=== PATIENT | female | born 1965 | race Caucasian/White ===

== ENCOUNTER 2019-06-10 10:05 | Emergency (ER) | payer OTHER, SELFPAY ==
[2019-06-10 10:06] VITALS: BP 167/93; PULSE 94; RESP 18; TEMP 36.6; O2SAT 98; BMI 35.1
--- NOTE | 2019-06-10 10:18 | EKG12_ITS ---
Test Reason : CP Blood Pressure : / mmHG Vent. Rate : 088 BPM Atrial Rate : 088 BPM P-R Int : 174 ms QRS Dur : 082 ms QT Int : 396 ms P-R-T Axes : 035 012 044 degrees QTc Int : 479 ms Normal sinus rhythm Normal ECG Confirmed by YORDAN LOPEZ, GENE ([id number]), metropolitan editor CATINA LENTZ ([id number]) on 06/14/2019 10:27:36 AM Referred By: IVELISSE Confirmed By:GENE FARR MD
--- NOTE | 2019-06-10 10:18 | RAD_ITS ---
STUDY: X-RAY - RIGHT HUMERUS REASON FOR EXAM: Female, 53 years old. Pain TECHNIQUE: 2 view(s) of the humerus. COMPARISON: None. FINDINGS: On one view, The transverse lucency possible step off within the medial epicondyle of the distal humerus. There is no demonstrated fracture or osseous destructive process. There is no demonstrated soft tissue abnormality. RAD/Humerus min 2 Views IMPRESSION: Possible artifact versus fracture medial epicondyle. Recommend palpation for point tenderness at the level of the medial condyle of the distal humerus. Recommend follow elbow x-ray of appropriate. Otherwise no evidence of an acute fracture. Electronically Signed: Shae Alvarez MD at 11:58 EDT Tel , Service support ,
--- NOTE | 2019-06-10 10:18 | RAD_ITS ---
STUDY: X-RAY CHEST REASON FOR EXAM: Female, 53 years old. Chest pain TECHNIQUE: PA and lateral views of the chest. COMPARISON: None. FINDINGS: The lungs are clear and expanded. There is no demonstrated pleural abnormality. Normal size heart. Normal mediastinum and mariel. Normal visualized pulmonary arteries. Normal visualized aortic arch and descending thoracic aorta. There are diffuse degenerative changes of the visualized thoracic spine. Normal visualized ribs, clavicles, and shoulders. There is no demonstrated abnormality of the visualized soft tissue structures of the upper abdomen. RAD/Chest PA and Lateral IMPRESSION: No demonstrated acute cardiopulmonary process. Electronically Signed: Shae Alvarez MD at 11:55 EDT Tel , Service support ,
--- NOTE | 2019-06-10 10:19 | ED.DCSUM_ITS ---
History of Present Illness Chief Complaint: Chest Pain Detail of Chief Complaint: Right chest and arm pain Informant: Patient Onset: Weeks Current Severity: Moderate Maximum Severity: Moderate Narrative: Patient states that she was diagnosed with shingles to the right upper chest and shoulder region approximately 8 weeks ago. Lesions have since resolved. Patient continues to have pain to the area and is continued to worsen. She is currently taking gabapentin but not getting improvement. She had previously been on Percocet but has not taken that in the past 2 weeks. Past Medical History - Allergies and Home Meds Allergies/Adverse Reactions: Allergies No Known Allergies Allergy (Verified 06/10/19 10:08) Primary Care Physician: Alexi Truong MD [Primary Care Provider] - Past Medical History: - - Reviewed Review of Systems General: Denies: Chills, Fever Eyes: Denies: Visual changes - bilaterally ENT: Denies: Bilateral ear pain Cardiovascular: Reports: Chest pain. Denies: Palpitations, Heart racing Respiratory: Denies: Dyspnea, Cough Gastrointestinal: Denies: Abdominal pain, Nausea, Vomiting Musculoskeletal: Reports: Arthralgias, Neck pain, Extremity Pain Neurological: Reports: Numbness - Mild numbness to the posterior right upper arm. Denies: Headache, Weakness Endocrine: Denies: Polyuria, Polydipsia Hematologic: Denies: Easy bruising Allergy: Denies: Uticaria Physical Exam Vital Signs/Narrative: Vital Signs Temp Pulse Resp BP Pulse Ox 06/10/19 10:06 97.9 F 94 18 167/93 H 98 Inital Vital Signs reviewed: Yes General: Well nourished, Well developed ENT: Moist mucous membranes Cardiovascular: Regular rate, Regular rhythm Respiratory: No distress, CTA bilaterally, Chest tenderness - Reproducible tenderness over the right upper chest wall. No crepitus. Abdomen: Soft, Nontender Extremities: Tenderness - Mild tenderness palpation throughout the right humerus. Skin: Normal color, No rash Neurological: Alert, Oriented x3 Psychological: Normal affect Diagnostic/Tx/Re-eval Impressions Chest X-Ray 06/10/19 10:18 IMPRESSION: No demonstrated acute cardiopulmonary process. Electronically Signed: Shae Alvarez MD at 11:55 EDT Tel , Service support , Humerus X-Ray 06/10/19 10:18 IMPRESSION: Possible artifact versus fracture medial epicondyle. Recommend palpation for point tenderness at the level of the medial condyle of the distal humerus. Recommend follow elbow x-ray of appropriate. Otherwise no evidence of an acute fracture. Electronically Signed: Shae Alvarez MD at 11:58 EDT Tel , Service support , 06/10/19 10:18 Chest PA and Lateral [RAD] Stat Humerus min 2 Views [RAD] Stat Laboratory Results 06/10/19 06/10/19 10:10 10:10 WBC 10.0 RBC 4.27 Hgb 13.1 Hct 39.4 MCV 92.3 MCH 30.7 MCHC 33.2 RDW Std Deviation 49.4 H RDW Coeff of Susan 14.6 Plt Count 296 MPV 10.2 Immature Gran % (Auto) 0.300 Neut % (Auto) 50.9 Lymph % (Auto) 38.2 Maverick % (Auto) 7.1 Eos % (Auto) 2.5 Baso % (Auto) 1.0 Absolute Neuts (auto) 5.1 Absolute Lymphs (auto) 3.82 Nucleated RBC % 0 Sodium 138 Potassium 3.8 Chloride 107 Carbon Dioxide 27.0 Anion Gap 4 L BUN 18 Creatinine 0.83 Estim Creat Clear Calc 62.71 Est GFR (MDRD) Af Amer 92 Est GFR (MDRD) Non-Af 76 BUN/Creatinine Ratio 21.6 H Glucose 105 Calcium 9.5 Troponin I < 0.015 - EKG Initial EKG Interpretation: Sinus Rhythm - Sinus 80 with no acute ischemia. - Medical Decision Making Patient was given morphine, Zofran, and IV fluids. On repeat evaluation she states her pain was improved and is now increasing again. I suspect she has postherpetic neuralgia. She is already on gabapentin. She will be given a short course of Percocet to help control her pain is week and I will see her doctor as scheduled this coming week. ED Disposition - Plan for ED Patient: Disposition: Home or Assisted Living Diagnosis: Postherpetic neuralgia Prescriptions: Oxycodone HCl/Acetaminophen [Percocet 5/325] 1 tablet PO Q6H PRN PRN 3 Days #12 tablet PRN Reason: Pain Referrals: Alexi Truong MD [Primary Care Provider] - Keep Major appointment
[2019-06-10 10:26] VITALS: BP 167/94; PULSE 77; RESP 14; O2SAT 94
[2019-06-10 10:26] LABS: Absolute Lymphocyte Count 3.82 X10^3/uL (0.83-4.51); Absolute Neutrophil Count 5.1 X10^3/uL (2.0-7.7); Eosinophil# 0.25 X10^3/uL; Eosinophils% 2.5 % (0-5); Hematocrit 39.4 % (37-47); Hemoglobin 13.1 g/dL (12.0-15.0); Lymphocyte # 3.82 X10^3/ul (4.0); Lymphocyte % 38.2 % (19-41); Mean Corp Hgb Conc 33.2 g/dL (32-36); Mean Corpuscular Hgb 30.7 pg (27.0-32.0); Mean Corpuscular Volume 92.3 fL (81-99); Mean Platelet Vol. 10.2 fl (6.2-12.0); Monocyte# 0.71 X10^3/uL; Monocyte% 7.1 % (0-10); NRBC Flagged by Analyzer 0 % (0-5); Neutrophil # 5.09 X10^3/uL (2.7-7.7); Neutrophil % 50.9 % (47-70); Platelet Count 296 K/mm3 (150-450); RBC Distribution Width CV 14.6 % (11.6-14.6); RBC Distribution Width SD 49.4 fl (35.1-43.9); Red Blood Count 4.27 M/mm3 (4.2-5.4)
[2019-06-10] MEDS: 0.9% Normal Saline 1,000 ML 150 ML IV (10:27)
[2019-06-10] MEDS: Morphine 4 MG/ML Syringe IV (10:27)
[2019-06-10] MEDS: Ondansetron 4 MG/2 ML Vial IV ×2 (10:27→13:04)
[2019-06-10 10:41] LABS: Anion Gap 4 (5-15); BUN 18 mg/dL (7-18); BUN/Creat Ratio 21.6 RATIO (10-20); Calcium,Total 9.5 mg/dL (8.5-10.1); Chloride 107 mmol/L (98-107); Creatinine, Serum 0.83 mg/dL (0.55-1.02); EST Glomerular Filtration Rate 76 mL/min (>60); Est Glom Filt Rate - Afr Amer 92 mL/min (>60); Estimated Creatinine Clearance 62.71 ml/min; Glucose 105 mg/dL (74-106); Potassium 3.8 mmol/L (3.5-5.1); Sodium Level 138 mmol/L (136-145)
[2019-06-10 13:12] VITALS: BP 144/90; PULSE 75; RESP 16; O2SAT 96
== END 2019-06-10 13:17 | disposition home or self-care (01) ==
PROVIDERS: Emergency Provider Emergency Medicine; Family Provider Family Medicine; PCP Family Medicine
DX: B02.29 Other postherpetic nervous system involvement (principal); Z79.82 Long term (current) use of aspirin; Z79.899 Other long term (current) drug therapy
CPT/HCPCS: 71046; 73060; 80048; 84484; 85025; 93005; 96361; 96374; 96375; 96376; 99284; J7030; A4216; J2405

== ENCOUNTER 2022-12-06 08:11 | Inpatient (IN) | payer SELFPAY ==
[2022-12-06] VITALS (13 sets, daily range): BP systolic 126–161; BP diastolic 76–132; PULSE 96–135; RESP 13–49; TEMP 35.8–36.6; O2SAT 84–99; BMI 36.9; BMI 38.2
--- NOTE | 2022-12-06 08:32 | RAD_ITS ---
EXAM: XR Chest 1 View INDICATION: Female, 57 years old. Chest pain TECHNIQUE: Single AP view COMPARISON: 06/10/2019 FINDINGS: DEVICES: None LUNGS: No confluent air space opacity. There is mild prominence of interstitial lung markings throughout the midlung zone lung bases. No concerning pulmonary nodule. No pleural effusion or pneumothorax. MEDIASTINUM: Cardiac and mediastinal silhouettes are within normal limits. No central pulmonary vascular congestion. . SKELETAL STRUCTURES: No acute skeletal abnormality. UPPER ABDOMEN: Unremarkable RAD/Chest 1 View (Portable) IMPRESSION: Mild interstitial infiltration throughout the lung bases, likely representing edema. Electronically Signed: Genaro Bruner MD at 9:20 EST ,
--- NOTE | 2022-12-06 08:32 | EKG12_ITS ---
Test Reason : SOB Blood Pressure : / mmHG Vent. Rate : 108 BPM Atrial Rate : 108 BPM P-R Int : 174 ms QRS Dur : 086 ms QT Int : 370 ms P-R-T Axes : 051 038 067 degrees QTc Int : 495 ms Sinus tachycardia Otherwise normal ECG Confirmed by ERICK LOPEZ, ARVIND ([id number]), graphic editor CATINA LENTZ ([id number]) on 12/07/2022 10:07:01 AM Referred By: Confirmed By:ARVIND SUAREZ MD
--- NOTE | 2022-12-06 08:34 | EX.ED.VIS.UR ---
HPI HPI - URI History of Present Illness Chief Complaint: Shortness of Breath Detail of Chief Complaint: Cough for 2 weeks. Informant: patient Onset/Context/Timing Onset: Weeks Context: Gradual Onset Timing: Continuous Current Severity: Mild Maximum Severity: Mild Associated Symptoms Associated Symptoms: Positive for Shortness of Breath and Productive Cough; Negative for Nasal Congestion, Myalgias, Nausea, Vomiting, Diarrhea, Chest Pain, Nonproductive cough or Hemoptysis Narrative Narrative: 57-year-old female past medical history of type 2 diabetes with neuropathy. States she has had cough for 2 weeks typically nonproductive at times she cannot bring up dark phlegm. Denies any hemoptysis. No chest pain. Last 2 days she has gotten progressively more short of breath. Today in triage her pulse ox was 84% on room air. She is a non-smoker. No history of asthma or COPD. Denies any leg swelling. No hemoptysis. No recent travel or surgery. Prior similar symptoms: Yes Recent Illness/Hospitalization: No ROS ROS ED ROS Narrative Cough. Short of breath. Review of Systems ROS Unobtainable: Denies due to encephalopathy Constitutional Constitutional ED: Denies chills or fever(s) Eyes Eyes: Denies blurry vision ENT ENT ED: Denies ear pain Cardiovascular Cardiovascular: Denies chest pain or palpitations Respiratory/Chest Respiratory/Chest: Reports cough and dyspnea Gastrointestinal Gastrointestinal: Denies abdominal pain, constipation, diarrhea, melena, nausea or vomiting Genitourinary Genitourinary ED: Denies dysuria or hematuria Musculoskeletal Musculoskeletal: Denies arthralgias Integumentary Denies abscess Neurologic Neurologic: Denies headache(s) Psychiatric Psychiatric: Denies anxiety Endocrine Endocrinology: Denies cold intolerance Hematologic/Lymphatic Hematologic/Lymphatic: Denies easy bleeding or easy bruising Allergic/Immunologic Allergic/Immunologic ED: Denies mouth swelling or tongue swelling [facility] Medical History (Updated 12/06/22 @ 12:[address] Jamie Payne MD) Depression Diabetes High cholesterol Neuropathy Vertigo Home Medications aspirin 81 mg tablet,delayed release 81 mg PO DAILY 06/10/19 [History Last Taken Unknown] glimepiride 4 mg tablet 4 mg PO DAILY 06/10/19 [History Last Taken Unknown] lisinopril 5 mg tablet 5 mg PO DAILY 06/10/19 [History Last Taken Unknown] metformin 1,000 mg tablet 1,000 mg PO DAILY 06/10/19 [History Last Taken Unknown] multivitamin 1 ea PO DAILY 06/10/19 [History Last Taken Unknown] omeprazole 20 mg capsule,delayed release 20 mg PO DAILY 06/10/19 [History Last Taken Unknown] bupropion HCl 150 mg 24 hr tablet, extended release 150 mg PO DAILY 12/06/22 [History Last Taken Unknown] duloxetine 60 mg capsule,delayed release 90 mg PO DAILY 12/06/22 [History Last Taken Unknown] fexofenadine 180 mg tablet 180 mg PO DAILY 12/06/22 [History Last Taken Unknown] hydrochlorothiazide 25 mg tablet 25 mg PO DAILY 12/06/22 [History Last Taken Unknown] insulin glargine 100 unit/mL (3 mL) subcutaneous pen 35 unit subcut QPM 12/06/22 [History Last Taken Unknown] meclizine 25 mg tablet 25 mg PO DAILY PRN Dizziness 12/06/22 [History Last Taken Unknown] pregabalin 300 mg capsule 300 mg PO BID 12/06/22 [History Last Taken Unknown] rosuvastatin 10 mg tablet 10 mg PO DAILY 12/06/22 [History Last Taken Unknown] Allergy/AdvReac Type Severity Reaction Status Date / Time dulaglutide [From [facility]] Allergy Nausea/Vom/ Verified 12/06/22 08:12 Diarrhea Social History Smoking Status: Former smoker EXAM Physical Exam Narrative Exam Narrative: 37-year-old female no acute distress. Initial pulse ox was 84% on room air consistent with hypoxia. On 4 L she is 99%. H EENT exam unremarkable. Moist Riis membranes. Neck nontender no JVD. No lymphadenopathy. Lungs clear to auscultation bilaterally. Heart is tachycardic rate about 115. No murmur. Chest were nontender. Abdomen soft nontender. Moving all 4 extremities. Calves are nontender without edema or cords. Neurologically she is awake and alert with no focal motor deficits. Const Vital Signs: 12/06/22 08:13 12/06/22 08:16 12/06/22 08:23 Temperature 96.4 F L Temperature Source Temporal Pulse Rate 135 H 116 H Respiratory Rate 35 H 24 H Respiratory Effort Short of Breath Accessory Muscle Use Blood Pressure 154/132 H 161/88 H Blood Pressure Mean 139 112 Pulse Ox 84 99 Oxygen Delivery Method Room Air Nasal Cannula Oxygen Flow Rate (L/min) 4 12/06/22 08:38 12/06/22 08:45 12/06/22 09:15 Temperature 98 F Temperature Source Temporal Pulse Rate 110 H 102 H Respiratory Rate 16 20 H Respiratory Effort Blood Pressure 128/86 H Blood Pressure Mean 100 Pulse Ox 94 95 Oxygen Delivery Method Nasal Cannula Nasal Cannula Oxygen Flow Rate (L/min) 3 3 12/06/22 10:15 12/06/22 11:09 Temperature 98 F 97.9 F Temperature Source Temporal Oral Pulse Rate 98 102 H Respiratory Rate 18 15 Respiratory Effort Blood Pressure 126/78 H 131/84 H Blood Pressure Mean 94 99 Pulse Ox 97 92 Oxygen Delivery Method Nasal Cannula Nasal Cannula Oxygen Flow Rate (L/min) 3 3.5 Positive well nourished, well developed and obese; Negative for cachectic or contractures General Appearance ED: well developed and NAD; Negative for cachectic, contractures, cyanotic, diaphoretic or pallor Nutritional Appearance: obese; Negative for cachectic HEENT Reports moist mucous membranes; Denies dry mucous membranes normocephalic; Negative for atraumatic Face and Sinus: Negative for sinus tenderness Mouth ED: No dry mucous membranes Mouth: No dry mucous membranes Teeth and Gingiva: Negative for caries Throat: posterior oropharynx normal Eyes PERRL and EOMs intact bilaterally General Eye ED: Negative for pale conjunctiva, scleral icterus or other Neck no lymphadenopathy, supple, no meningeal signs and no JVD General: Negative for anterior neck swelling or lymphadenopathy Resp normal respiratory effort and clear to auscultation bilaterally Effort and Inspection: Negative for retractions Auscultation: Negative for rales, rhonchi or wheezes Cardio S1 normal heart sound, S2 normal heart sound and no murmurs Rate: tachycardic; Negative for regular rate or bradycardia Rhythm: regular rhythm GI non-tender, non-distended and no masses Inspection: Negative for abdominal distention Auscultation: normoactive bowel sounds Palpation: soft; Negative for tender, guarding or hepatomegaly Back/Spine no CVA tenderness and normal ROM General Back: Negative for CVA tenderness Cervical Spine: Negative for cervical spine tenderness Thoracic Spine / Upper Back: Negative for thoracic spinal tenderness Lumbar Spine / Lower Back: Negative for lumbar spinal tenderness Sacrum: Negative for tenderness Extremity normal to inspection and full ROM General Extremety ED: Negative for cyanosis, tenderness or other findings General Extremity: Negative for cyanosis or other findings Neuro oriented x3, CN's II-XII intact bilaterally and no sensory deficits noted Sensorium / Orientation: alert, oriented to person, oriented to place and oriented to time; Negative for orientation impaired, lethargic or stuporous Motor Exam: strength 5/5 throughout Psych mental status grossly normal Appearance: Negative for other Attitude: No agitated Mood & Affect: Negative for depressed, anxious or tearful Skin General Skin Exam: Negative for jaundice or pallor Lesions: no lesions Rashes: no rashes Trauma: Negative for abrasion or laceration MDM MDM MDM Narrative Medical decision making narrative: 57-year-old female, non-smoker, with cough for 2 weeks now short of breath with pulse ox 84% on room air consistent with hypoxia. Differential would include pneumonia, bronchitis, influenza, COVID versus other etiologies. Chest x-ray and labs are being obtained. She will be treated with a DuoNeb aerosol. Repeat exam patient is doing well at 11:45 AM. Currently not have a specific cause this appears to be a viral URI. There is no pneumonia or PE on the CAT scan. I have turned the oxygen off and working to ambulate her and see if she becomes hypoxic or not without O2. Nurses walked the patient and her pulse ox again dropped down to 84% and she started having labored breathing with walking off of oxygen. Repeat exam otherwise unchanged. I will speak to the hospitalist about admission. She is being given a dose of prednisone also. Patient will be admitted. She be placed on PCU. This could be from a viral syndrome. There is a PCR COVID pending. He could be from new onset CHF or something else. She will need further evaluation. Hospitalist and I discussed her admission. Lab Data Attestation: I reviewed the patient's lab results. Lab results narrative: CBC shows a normal white count 8. H&H of 12.6 and 38. Platelets of 256. Electrolytes show a gap of 8 normal BUN and creatinine of 14 and 0.7. Glucose 264. Chest x-ray chronic changes. Rapid COVID and influenza negative. CTA chest shows no PE. No pneumonia. Mild pulmonary edema. Troponin is normal at 16. Labs: Laboratory Results - last 24 hr 12/06/22 12/06/22 12/06/22 08:31 08:37 08:37 WBC 8.0 RBC 4.18 L Hgb 12.6 Hct 38.5 MCV 92.1 MCH 30.1 MCHC 32.7 RDW Std Deviation 45.3 H RDW Coeff of Susan 13.6 Plt Count 256 MPV 10.3 Immature Gran % (Auto) 0.400 Neut % (Auto) 48.3 Lymph % (Auto) 39.5 Sharp % (Auto) 8.8 Eos % (Auto) 2.0 Baso % (Auto) 1.0 Absolute Neuts (auto) 3.8 Absolute Lymphs (auto) 3.14 Nucleated RBC % 0 Sodium 140 Potassium 3.9 Chloride 105 Carbon Dioxide 27.0 Anion Gap 8 BUN 14 Creatinine 0.78 Estim Creat Clear Calc 63.70 Est GFR (MDRD) Af Amer 99 Est GFR (MDRD) Non-Af 82 BUN/Creatinine Ratio 18.1 Glucose 264 H Calcium 9.0 Troponin I High Sens POC Glucose 261 H 12/06/22 08:37 WBC RBC Hgb Hct MCV MCH MCHC RDW Std Deviation RDW Coeff of Susan Plt Count MPV Immature Gran % (Auto) Neut % (Auto) Lymph % (Auto) Sharp % (Auto) Eos % (Auto) Baso % (Auto) Absolute Neuts (auto) Absolute Lymphs (auto) Nucleated RBC % Sodium Potassium Chloride Carbon Dioxide Anion Gap BUN Creatinine Estim Creat Clear Calc Est GFR (MDRD) Af Amer Est GFR (MDRD) Non-Af BUN/Creatinine Ratio Glucose Calcium Troponin I High Sens 16 POC Glucose Radiography Diagnostic Testing: Clinical Impression(s) from Imaging Studies Chest X-Ray 12/06/22 08:32 IMPRESSION: Mild interstitial infiltration throughout the lung bases, likely representing edema. Electronically Signed: Genaro Bruner MD at 9:20 EST , Chest CTA 12/06/22 09:47 IMPRESSION: 1. No CTA evidence of pulmonary thromboemboli, thoracic aortic aneurysm or dissection. 2. Mild bilateral posterior pleural fluid and pulmonary interstitial edema suspicious for CHF. 3. Borderline cardiomegaly with segmental high-grade stenosis along the LAD branch of the left coronary artery due to calcified plaques and high-grade stenosis at the origin of the circumflex branch of the left coronary artery. Electronically Signed: Jonathan Duenas MD at 10:33 EST , Chest x-ray, portable, single view interpreted by myself shows no acute process. Most likely atelectasis in the bases. Rhythm Strip Rhythm Strip: Sinus Tach Rate: 108 Ectopy: None EKG Initial EKG: Attestation: I personally reviewed and interpreted this EKG as follows: Interpretation: No Acute Injury Pattern and Sinus Tachycardia Comments: Sinus tachycardia rate of 108. No acute signs of AK or ischemia. No significant change from prior EKG from June 2019. Prior EKG tracings: available for review Prior: Unchanged Discharge Plan Dx/Rx/DC Orders Clinical Impression: Hypoxia, Viral syndrome, Pulmonary edema Disposition Disposition: Acute Care Hospital [facility]
[2022-12-06] MEDS: Ipratropium/Albuterol Sulfate 3 ML AMPUL.NEB INHALATION (08:44)
[2022-12-06 08:49] LABS: Absolute Lymphocyte Count 3.14 X10^3/uL (0.83-4.51); Absolute Neutrophil Count 3.8 X10^3/uL (2.0-7.7); Basophil# 0.08 X10^3/uL; Eosinophil# 0.16 X10^3/uL; Hematocrit 38.5 % (37-47); Hemoglobin 12.6 g/dL (12.0-15.0); Lymphocyte # 3.14 X10^3/ul (0.83-4.51); Lymphocyte % 39.5 % (19-41); Mean Corp Hgb Conc 32.7 g/dL (32-36); Mean Corpuscular Hgb 30.1 pg (27.0-32.0); Mean Corpuscular Volume 92.1 fL (81-99); Mean Platelet Vol. 10.3 fl (6.2-12.0); Monocyte% 8.8 % (0-10); NRBC Flagged by Analyzer 0 % (0-5); Neutrophil # 3.84 X10^3/uL (2.7-7.7); Neutrophil % 48.3 % (47-70); Platelet Count 256 K/mm3 (150-450); RBC Distribution Width CV 13.6 % (11.6-14.6); RBC Distribution Width SD 45.3 fl (35.1-43.9); Red Blood Count 4.18 M/mm3 (4.2-5.4)
[2022-12-06 08:51] LABS: Bedside Glucose 261 mg/dL (74-106)
[2022-12-06 09:12] LABS: Anion Gap 8 (5-15); BUN 14 mg/dL (7-18); BUN/Creat Ratio 18.1 RATIO (10-20); Chloride 105 mmol/L (98-107); Creatinine, Serum 0.78 mg/dL (0.55-1.02); EST Glomerular Filtration Rate 82 mL/min (>60); Est Glom Filt Rate - Afr Amer 99 mL/min (>60); Glucose 264 mg/dL (74-106); Potassium 3.9 mmol/L (3.5-5.1); Sodium Level 140 mmol/L (136-145)
--- NOTE | 2022-12-06 09:47 | CT_ITS ---
EXAM: CT ANGIOGRAPHY CHEST WITHOUT AND WITH INTRAVENOUS CONTRAST CLINICAL INDICATION: Hypoxia TECHNIQUE: Helically acquired angiography images were obtained of the chest without and with intravenous contrast. This CT exam was performed using one or more of the following dose reduction techniques: automated exposure control, adjustment of the mA and/or kV according to patient size, and/or use of iterative reconstruction technique. This report was created using [employer] report generation technology. MIP reconstructed images were created and reviewed. CONTRAST: IV 100mL [id number]-[id number] RADIATION DOSE: CTDIvol = 14.85 mGy, DLP = 507.68 mGy-cm COMPARISON: None. FINDINGS: PULMONARY ARTERIES: Unremarkable. Normal in caliber. No evidence of pulmonary embolism. AORTA: Unremarkable. Normal in caliber. No evidence of dissection. GREAT VESSELS OF AORTIC ARCH: Unremarkable. Normal in caliber. No evidence of dissection. LUNGS AND PLEURAL SPACES: Mild pulmonary interstitial edema. Mild bilateral posterior pleural fluid. No mass. No pneumothorax. HEART: Borderline cardiomegaly. Calcified plaques with segmental high-grade stenosis along the LAD branch of the left coronary artery. High-grade stenosis at origin of the circumflex branch of the left coronary artery. Normal pericardium. No signs of right heart strain, ratio of right ventricle to left ventricle measures less than 1. MEDIASTINUM: Unremarkable. No mediastinal or hilar adenopathy. Esophagus is unremarkable. No hiatal hernia. THYROID: Unremarkable. No thyroid lesions. BONES/JOINTS: Unremarkable. No suspicious lytic or blastic abnormality. CT/CTA Chest W/WO Contrast IMPRESSION: 1. No CTA evidence of pulmonary thromboemboli, thoracic aortic aneurysm or dissection. 2. Mild bilateral posterior pleural fluid and pulmonary interstitial edema suspicious for CHF. 3. Borderline cardiomegaly with segmental high-grade stenosis along the LAD branch of the left coronary artery due to calcified plaques and high-grade stenosis at the origin of the circumflex branch of the left coronary artery. Electronically Signed: Jonathan Duenas MD at 10:33 EST ,
[2022-12-06 10:21] LABS: Troponin-I HS 16 pg/mL (3.0-54.0)
--- NOTE | 2022-12-06 11:36 | ED.RN ---
PER DR. PICKERING, PT OKAY TO TAKE HOME MEDICATIONS ADMINISTERED BY PT FAMILY MEMBER.
[2022-12-06 12:29] LABS: Troponin-I HS 26 pg/mL (3.0-54.0)
[2022-12-06] MEDS: predniSONE 20 MG Tablet 60 MG PO (12:30)
--- NOTE | 2022-12-06 12:35 | HP.PCM.HOS_ITS ---
HPI - General General Date of Admission: 12/06/22 Date of Service: 12/06/22 Chief Complaint: Shortness of breath HPI Narrative DOLORES BOND, is a 57 F with past medical history significant diabetes mellitus type 2, dyslipidemia essential pretension who presented with shortness of breath. Patient reports weeks of progressive shortness of breath. Patient shortness of breath is brought on with minimal activity. Patient also reports difficulty laying flat. In addition to above symptoms patient has been experiencing a nonproductive cough for the past couple of weeks. Denied any subjective fever or chills. On the morning of her presentation her breathing became very labored. Per patient she could hear fluid guggul in her lungs. Presented to the emergency department as a result. CT of the chest was negative for PE however did show pulmonary edema. Subsequently admitted to monitored bed for further treatment. [facility] Medical History Depression Diabetes High cholesterol Neuropathy Vertigo Home Medications aspirin 81 mg tablet,delayed release 81 mg PO DAILY 06/10/19 [History Last Taken Unknown] glimepiride 4 mg tablet 4 mg PO DAILY 06/10/19 [History Last Taken Unknown] lisinopril 5 mg tablet 5 mg PO DAILY 06/10/19 [History Last Taken Unknown] metformin 1,000 mg tablet 1,000 mg PO DAILY 06/10/19 [History Last Taken Unknown] multivitamin 1 ea PO DAILY 06/10/19 [History Last Taken Unknown] omeprazole 20 mg capsule,delayed release 20 mg PO DAILY 06/10/19 [History Last Taken Unknown] bupropion HCl 150 mg 24 hr tablet, extended release 150 mg PO DAILY 12/06/22 [History Last Taken Unknown] duloxetine 60 mg capsule,delayed release 90 mg PO DAILY 12/06/22 [History Last Taken Unknown] fexofenadine 180 mg tablet 180 mg PO DAILY 12/06/22 [History Last Taken Unknown] hydrochlorothiazide 25 mg tablet 25 mg PO DAILY 12/06/22 [History Last Taken Unknown] insulin glargine 100 unit/mL (3 mL) subcutaneous pen 35 unit subcut QPM 12/06/22 [History Last Taken Unknown] meclizine 25 mg tablet 25 mg PO DAILY PRN Dizziness 12/06/22 [History Last Taken Unknown] pregabalin 300 mg capsule 300 mg PO BID 12/06/22 [History Last Taken Unknown] rosuvastatin 10 mg tablet 10 mg PO DAILY 12/06/22 [History Last Taken Unknown] Allergy/AdvReac Type Severity Reaction Status Date / Time dulaglutide [From [facility]] Allergy Nausea/Vom/ Verified 12/06/22 08:12 Diarrhea Family History (Updated 12/06/22 @ 12:[address] Victor Manuel Guzman MD) Mother Heart disease Social History Smoking Status: Former smoker ROS ROS Narrative GENERAL: denies fever, chills, night sweats, HEENT: denies headache, sinus congestion, RESPIRATORY: cough, shortness of breath, dyspnea on exertion CARDIAC: deorthopnea, PND GASTROINTESTINAL: denies abdominal pain, nausea, vomiting, melena, GENITOURINARY: denies dysuria, urgency, frequency, heamaturia EXTREMITY: denies swelling MUSCULOSKELETAL: denies current joint pain or tenderness NEUROLOGIC: denies focal numbness, weakness, tingling HEMATOLOGIC: denies easy bruising and/or hemorrhage INTEGUMENT: denies rashes PSYCHIATRIC: denies suicidal or homicidal ideation Vital Signs Vital Signs Vital Signs: 12/06/22 08:13 12/06/22 08:16 12/06/22 08:23 Temperature 96.4 F L Temperature Source Temporal Pulse Rate 135 H 116 H Respiratory Rate 35 H 24 H Respiratory Effort Short of Breath Accessory Muscle Use Blood Pressure 154/132 H 161/88 H Blood Pressure Mean 139 112 Pulse Ox 84 99 Oxygen Delivery Method Room Air Nasal Cannula Oxygen Flow Rate (L/min) 4 12/06/22 08:38 12/06/22 08:45 12/06/22 09:15 Temperature 98 F Temperature Source Temporal Pulse Rate 110 H 102 H Respiratory Rate 16 20 H Respiratory Effort Blood Pressure 128/86 H Blood Pressure Mean 100 Pulse Ox 94 95 Oxygen Delivery Method Nasal Cannula Nasal Cannula Oxygen Flow Rate (L/min) 3 3 12/06/22 10:15 12/06/22 11:09 12/06/22 12:25 Temperature 98 F 97.9 F 97.4 F L Temperature Source Temporal Oral Temporal Pulse Rate 98 102 H 96 Respiratory Rate 18 15 13 Respiratory Effort Blood Pressure 126/78 H 131/84 H 126/97 H Blood Pressure Mean 94 99 106 Pulse Ox 97 92 98 Oxygen Delivery Method Nasal Cannula Nasal Cannula Nasal Cannula Oxygen Flow Rate (L/min) 3 3.5 2 12/06/22 12:25 Temperature Temperature Source Pulse Rate 97 Respiratory Rate 49 H Respiratory Effort Blood Pressure 126/97 H Blood Pressure Mean 106 Pulse Ox 95 Oxygen Delivery Method Nasal Cannula Oxygen Flow Rate (L/min) 2 Weight Weight: 91.626 kg Body Mass Index (BMI) 36.9 Physical Exam Narrative GENERAL: cooperative HEENT: Atraumatic; normocephalic EYES; Anicteric, Normal Conjunctiva NECK; supple, normal thyroid, RESPIRATORY: Diminished to auscultation CARDIOVASCULAR: Regular S1 S2, GI: soft, normoactive bowel sounds, : No Renal angle tenderness; EXTREMITIES: No edema, no clubbing, MUSCULOSKELETAL: no muscle wasting NEURO: Awake; no lateralizing signs. SKIN: No Rash PSYCH; Flat affect Results Lab / Micro Data Result Diagrams: 12/06/22 08:37 12/06/22 08:37 Labs: Laboratory Results - last 24 hr 12/06/22 08:31: POC Glucose 261 H 12/06/22 08:37: WBC 8.0, RBC 4.18 L, Hgb 12.6, Hct 38.5, MCV 92.1, MCH 30.1, MCHC 32.7, RDW Std Deviation 45.3 H, RDW Coeff of Susan 13.6, Plt Count 256, MPV 10.3, Immature Gran % (Auto) 0.400, Neut % (Auto) 48.3, Lymph % (Auto) 39.5, [place] % (Auto) 8.8, Eos % (Auto) 2.0, Baso % (Auto) 1.0, Absolute Neuts (auto) 3.8, Absolute Lymphs (auto) 3.14, Nucleated RBC % 0 12/06/22 08:37: Sodium 140, Potassium 3.9, Chloride 105, Carbon Dioxide 27.0, Anion Gap 8, BUN 14, Creatinine 0.78, Estim Creat Clear Calc 63.70, Est GFR (MDRD) Af Amer 99, Est GFR (MDRD) Non-Af 82, BUN/Creatinine Ratio 18.1, Glucose 264 H, Calcium 9.0 12/06/22 08:37: Troponin I High Sens 16 12/06/22 11:53: Troponin I High Sens 26 Micro: Microbiology 12/06/22 08:37 Nasal Secretion SARS-CoV-2 & FLU Antigen (Rapid) - Final Rhythm Strip Rhythm Strip: Sinus Tach Rate: 108 Ectopy: None Radiology Impression Chest X-Ray 12/06/22 08:32 IMPRESSION: Mild interstitial infiltration throughout the lung bases, likely representing edema. Electronically Signed: Genaro Bruner MD at 9:20 EST , Chest CTA 12/06/22 09:47 IMPRESSION: 1. No CTA evidence of pulmonary thromboemboli, thoracic aortic aneurysm or dissection. 2. Mild bilateral posterior pleural fluid and pulmonary interstitial edema suspicious for CHF. 3. Borderline cardiomegaly with segmental high-grade stenosis along the LAD branch of the left coronary artery due to calcified plaques and high-grade stenosis at the origin of the circumflex branch of the left coronary artery. Electronically Signed: Jonathan Duenas MD at 10:33 EST , Assessment & Plan Assessment/Plan (1) Pulmonary edema: PLAN: Plan Patient is a 57-year-old lady presenting with progressive exertional dyspnea 1. Acute hypoxia ? Suspected to be secondary to congestive heart failure. CT of the chest did show pulmonary edema admitted to a monitored bed with treatment of underlying condition. Patient placed on supplemental oxygen titrated to keep saturation greater than 90 3. Acute congestive heart failure ? Unspecified at this point. Patient has been placed on a monitored bed currently being managed with strict input and output Daily weight low-sodium diet as well as diuretic therapy with furosemide. As part of her management ordered 2D echo serial cardiac enzymes and daily BMP for follow-up 3. Diabetes mellitus type 2 ? Held patient oral agents did continue with her long-acting insulin. Was also placed on Accu-Cheks before meals and at bedtime with sliding scale coverage 4. Dyslipidemia ? Patient is on rosuvastatin substituted with atorvastatin in the hospital 5. Essential hypertension ? Patient is on HCTZ which is being held since patient has been placed on diuretic therapy with furosemide. 6. GERD ? Patient is on PPI with omeprazole did continue 7. Diabetic polyneuropathy ? Patient is on pregabalin did continue 8. Class II obesity with BMI of 36.9 ? Complicating patient's care weight loss advised 9. DVT prophylaxis sC Lovenox Time spent in the patient's overall evaluation,decision-making process, review of diagnostic data, adjustment of management, discussion with other providers, nursing nursing and ancillary staff involved in patient's care documentation, 72 Minutes Advance planning; did discuss with the patient and family regarding advanced directives as well as CODE STATUS. Did explain the various scenarios involved ( FULL CODE, DNR CCA, DNR CCA with no intubation, and DNR CC and what each meant) remain full code with CPR and intubation if needed order was placed. Time spent on discussion 18 minutes. Charges/Coding Visit Charges Inpatient E&M: 79110 Init Hosp L3 Procedures Hospitalists Procedures: 21615 Advncd Care Plan 30 Min
--- NOTE | 2022-12-06 13:17 | ECHOD_ITS ---
Reason For Study: CHF Procedure This was a 2D Doppler, Color Flow transthoracic echocardiogram. Exam performed portable in patient room. Left Ventricle Normal LV size. Left ventricular systolic function is lower limits of normal. The estimated ejection fraction is 50 %. Stage 3 diastolic dysfunction. No regional wall motion abnormalities noted. Right Ventricle Normal RV size. Normal systolic function. Atria Normal left atrium. Normal right atrium. Aortic Valve Normal aortic valve. Pulmonic Valve Normal pulmonic valve. Great Vessels Normal aortic root. The pulmonary artery is normal size. Normal inferior vena cava. Pericardium/Pleural No pericardial effusion. MMode/2D Measurements & Calculations LVIDd: 5.7 cm IVSd: 0.95 cm Ao root diam: 3.3 cm LVIDs: 4.2 cm LVPWd: 0.94 cm RVDd: 2.4 cm FS: 25.7 % LAV(MOD-bp): 47.2 ml LA dimension(2D): 3.8 cm LA A4 area: 16.0 cm2 LAV(MOD-bp) Indexed: 24.6 ml/m2 LAV(MOD-sp2): 45.2 ml LAV(MOD-sp4): 45.1 ml Time Measurements MV dec time: 0.15 sec Doppler Measurements & Calculations MV E max byron: 108.1 cm/sec Lat Peak E' Byron: 4.6 cm/sec Ao V2 max: 106.1 cm/sec MV A max byron: 40.2 cm/sec E/E' lat: 23.6 Ao max P.5 mmHg MV E/A: 2.7 Ao V2 mean: 74.9 cm/sec Ao mean P.6 mmHg Ao V2 VTI: 19.8 cm AV (velocity ratio): 0.84 LV V1 max: 96.9 cm/sec PA V2 max: 77.4 cm/sec LV V1 max P.8 mmHg LV V1 mean P.9 mmHg LV V1 mean: 64.0 cm/sec LV V1 VTI: 16.7 cm ECHO/Echo Complete Interpretation Summary Normal LV size. Left ventricular systolic function is lower limits of normal. The estimated ejection fraction is 50 %. Stage 3 diastolic dysfunction. Ordering Physician: Victor Manuel Guzman Referring Physician: Alexi Truong Performed By: Treva Rosa, ORIANA, RVT
[2022-12-06 14:08] LABS: BNP,B-Type NATRIURETIC PEPTIDE 141.7 pg/mL (0-100)
[2022-12-06 14:11] LABS: Bedside Glucose 218 mg/dL (74-106)
[2022-12-06] MEDS: 0.9% Saline Lock 10 ML Syringe IV ×2 (14:47→21:34)
[2022-12-06] MEDS: Furosemide 40 MG/4 ML Vial IV ×2 (14:47→21:34)
[2022-12-06 15:13] LABS: Troponin-I HS 25 pg/mL (3.0-54.0)
[2022-12-06] MEDS: Pregabalin 50 MG Capsule 100 MG PO (17:58)
[2022-12-06] MEDS: Insulin Lispro 100 UNIT/ML INSULN.PEN SC ×2 (18:02→21:35)
[2022-12-06 18:20] LABS: Bedside Glucose 344 mg/dL (74-106)
[2022-12-06] MEDS: Pregabalin 50 MG Capsule 200 MG PO (21:34)
[2022-12-06] MEDS: Atorvastatin Calcium 20 MG Tablet PO (21:34)
[2022-12-06] MEDS: Insulin Glargine-YFGN 100 UNIT/ML Pen 35 UNIT SC (21:35)
[2022-12-06] MEDS: Acetaminophen 325 MG Tablet 650 MG PO (22:45)
[2022-12-06] MEDS: DiphenhydrAMINE 25 MG Capsule PO (22:46)
[2022-12-07] VITALS (13 sets, daily range): BP systolic 101–127; BP diastolic 48–97; PULSE 93–99; RESP 17–18; TEMP 36.6–36.8; O2SAT 90–98
[2022-12-07 04:21] LABS: Bedside Glucose 324 mg/dL (74-106)
[2022-12-07] MEDS: Furosemide 40 MG/4 ML Vial IV (05:06)
[2022-12-07] MEDS: 0.9% Saline Lock 10 ML Syringe IV (05:06)
[2022-12-07 05:14] LABS: Absolute Lymphocyte Count 2.47 X10^3/uL (0.83-4.51); Absolute Neutrophil Count 7.2 X10^3/uL (2.0-7.7); Basophil# 0.05 X10^3/uL; Basophil% 0.5 % (0-1); Hematocrit 38.2 % (37-47); Lymphocyte # 2.47 X10^3/ul (0.83-4.51); Lymphocyte % 23.3 % (19-41); Mean Corpuscular Hgb 30.7 pg (27.0-32.0); Mean Corpuscular Volume 90.1 fL (81-99); Monocyte# 0.83 X10^3/uL; Monocyte% 7.8 % (0-10); NRBC Flagged by Analyzer 0 % (0-5); Neutrophil # 7.23 X10^3/uL (2.7-7.7); Neutrophil % 68.1 % (47-70); Platelet Count 278 K/mm3 (150-450); RBC Distribution Width CV 13.7 % (11.6-14.6); RBC Distribution Width SD 44.5 fl (35.1-43.9); Red Blood Count 4.24 M/mm3 (4.2-5.4); White Blood Count 10.6 K/mm3 (4.4-11.0)
[2022-12-07 05:49] LABS: Anion Gap 9 (5-15); BUN 15 mg/dL (7-18); BUN/Creat Ratio 16.9 RATIO (10-20); Calcium,Total 9.6 mg/dL (8.5-10.1); Chloride 99 mmol/L (98-107); Creatinine, Serum 0.88 mg/dL (0.55-1.02); EST Glomerular Filtration Rate 70 mL/min (>60); Est Glom Filt Rate - Afr Amer 85 mL/min (>60); Estimated Creatinine Clearance 56.46 ml/min; Glucose 185 mg/dL (74-106); Potassium 3.8 mmol/L (3.5-5.1); Sodium Level 136 mmol/L (136-145)
[2022-12-07] MEDS: Insulin Lispro 100 UNIT/ML INSULN.PEN SC ×4 (06:29→21:19)
[2022-12-07 06:50] LABS: Bedside Glucose 179 mg/dL (74-106)
--- NOTE | 2022-12-07 08:48 | PN.HOSP_ITS ---
Subjective Subjective New onset CHF, breathing improving with diuretics. After reviewing CT she had significant calcification and cardiology consulted and she was taken to cath in the afternoon Objective Data Objective Data Vital Signs: Vital Signs Temp Pulse Resp BP Pulse Ox O2 Del Method O2 Flow Rate 97.9 F 93 18 114/87 H 98 Room Air 2 12/07/22 05:05 12/07/22 05:05 12/07/22 05:05 12/07/22 05:05 12/07/22 05:05 12/07/22 05:05 12/06/22 22:00 Oxygen Flow Rate (L/min) 2 Oxygen Delivery Method Room Air Weight: 93.1 kg Body Mass Index (BMI) 38.2 Intake & Output: Intake and Output for Last 24 Hours 12/05/22 12/06/22 12/07/22 23:59 23:59 23:59 Intake Total 450 / 450 Output Total 1900 / 1900 Balance 450 / -850 -1900 / -1900 Lab / Micro Data Result Diagrams: 12/07/22 04:42 12/07/22 04:42 Labs: Laboratory Results - last 24 hr 12/06/22 08:31: POC Glucose 261 H 12/06/22 08:37: WBC 8.0, RBC 4.18 L, Hgb 12.6, Hct 38.5, MCV 92.1, MCH 30.1, MCHC 32.7, RDW Std Deviation 45.3 H, RDW Coeff of Susan 13.6, Plt Count 256, MPV 10.3, Immature Gran % (Auto) 0.400, Neut % (Auto) 48.3, Lymph % (Auto) 39.5, Lawrence % (Auto) 8.8, Eos % (Auto) 2.0, Baso % (Auto) 1.0, Absolute Neuts (auto) 3.8, Absolute Lymphs (auto) 3.14, Nucleated RBC % 0 12/06/22 08:37: Sodium 140, Potassium 3.9, Chloride 105, Carbon Dioxide 27.0, Anion Gap 8, BUN 14, Creatinine 0.78, Estim Creat Clear Calc 63.70, Est GFR (MDRD) Af Amer 99, Est GFR (MDRD) Non-Af 82, BUN/Creatinine Ratio 18.1, Glucose 264 H, Calcium 9.0 12/06/22 08:37: Troponin I High Sens 16 01/29/23 08:37: B-Natriuretic Peptide 141.7 H 12/06/22 09:57: COVID-19 (ROBERTA) Not Detected 12/06/22 11:53: Troponin I High Sens 26 12/06/22 13:38: POC Glucose 218 H 12/06/22 14:37: Troponin I High Sens 25 12/06/22 17:57: POC Glucose 344 H 12/06/22 21:33: POC Glucose 324 H 12/07/22 04:42: WBC 10.6, RBC 4.24, Hgb 13.0, Hct 38.2, MCV 90.1, MCH 30.7, MCHC 34.0, RDW Std Deviation 44.5 H, RDW Coeff of Susan 13.7, Plt Count 278, MPV 10.0, Immature Gran % (Auto) 0.300, Neut % (Auto) 68.1, Lymph % (Auto) 23.3, [place] % (Auto) 7.8, Eos % (Auto) 0.0, Baso % (Auto) 0.5, Absolute Neuts (auto) 7.2, Absolute Lymphs (auto) 2.47, Nucleated RBC % 0 12/07/22 04:42: Sodium 136, Potassium 3.8, Chloride 99, Carbon Dioxide 28.0, Anion Gap 9, BUN 15, Creatinine 0.88, Estim Creat Clear Calc 56.46, Est GFR (MDRD) Af Amer 85, Est GFR (MDRD) Non-Af 70, BUN/Creatinine Ratio 16.9, Glucose 185 H, Calcium 9.6 12/07/22 06:28: POC Glucose 179 H Micro: Microbiology 12/06/22 08:37 Nasal Secretion SARS-CoV-2 & FLU Antigen (Rapid) - Final Radiography Diagnostic Testing: Radiology Impression Chest X-Ray 12/06/22 08:32 IMPRESSION: Mild interstitial infiltration throughout the lung bases, likely representing edema. Electronically Signed: Genaro Bruner MD at 9:20 EST , Chest CTA 12/06/22 09:47 IMPRESSION: 1. No CTA evidence of pulmonary thromboemboli, thoracic aortic aneurysm or dissection. 2. Mild bilateral posterior pleural fluid and pulmonary interstitial edema suspicious for CHF. 3. Borderline cardiomegaly with segmental high-grade stenosis along the LAD branch of the left coronary artery due to calcified plaques and high-grade stenosis at the origin of the circumflex branch of the left coronary artery. Electronically Signed: Jonathan Duenas MD at 10:33 EST Reading Location ID and State: [facility] / [place] , Service support , Rhythm Strip Rhythm Strip: Sinus Tach Rate: 108 Ectopy: None Physical Exam Narrative General: Alert, oriented, no apparent distress HEENT: Atraumatic, normocephalic Eyes: Anicteric, normal conjunctiva, extraocular movements grossly intact Neck: Supple Respiratory: Clear to auscultation bilaterally, normal respiratory effort Cardiovascular: Regular rate and rhythm GI: Soft, nontender, nondistended Extremities: No edema Musculoskeletal: Moving all extremities Neuro: No overt focal neurological deficits Skin: No rashes appreciated Psych: Cooperative Assessment & Plan Assessment/Plan (1) Pulmonary edema: PLAN: Plan #Hypoxia with pulmonary edema secondary to new onset heart failure with preserved ejection fraction CT showed pulmonary edema Echo demonstrated stage III diastolic dysfunction Lasix started Daily weights and I's and O's CTA did show segmental high-grade stenosis along the LAD as well as high-grade stenosis of the origin of the circumflex branch of the left coronary artery, troponin not elevated on admission but given high suspicion of new onset heart failure with stenosis seen on CT and cardiomegaly so cardiology was consulted and she was taken for cath and had a stent to the left circumflex and the RCA Aspirin statin, beta-pete, Brilinta #Type 2 diabetes mellitus Held oral agents continued long-acting insulin Accu-Cheks and sliding scale coverage #Essential hypertension Pete, lisinopril, Lasix #Anxiety and depression Cymbalta and Wellbutrin #GERD Continue Lyrica #Class II obesity with BMI of 36.9 Complicates care #DVT ppx: Lovenox subq Brandi Cooper MD Time spent in the patient's overall evaluation,decision-making process, review of diagnostic data, adjustment of management, discussion with other providers, nursing nursing and ancillary staff involved in patient's care documentation, 30 minutes Charges/Coding Visit Charges Inpatient E&M: 46383 Subs Hosp L2
[2022-12-07] MEDS: Lisinopril 5 MG Tablet PO (10:36)
[2022-12-07] MEDS: DULoxetine Hcl 30 MG Capsule 90 MG PO (10:36)
[2022-12-07] MEDS: Aspirin E.C. 81 MG Tablet PO (10:36)
[2022-12-07] MEDS: Pantoprazole Sodium 20 MG Tablet PO (10:36)
[2022-12-07] MEDS: buPROPion (XL) 150 MG TABLET.XL PO (10:37)
--- NOTE | 2022-12-07 10:40 | CON.PCM.CA_ITS ---
Assessment & Plan Assessment/Plan (1) Pulmonary edema: PLAN: She did present with pulmonary edema and has improved with diuretics. Her CAT scan demonstrated significant coronary calcification. This suggest to me that she may be rather high risk because of her diabetes status * Will recommend cardiac catheterization to assess her coronary anatomy . * Risk benefits and alternatives explained to her and she understands and agrees to proceed. * * : Cardiac catheterization demonstrated the following: Normal left main coronary artery. Left anterior descending artery with mild calcification and minimal disease. Left circumflex artery which is nondominant with 80% mid segment stenosis. Dominant large right coronary artery with mild calcification and eccentric 75% stenosis noted. Left ventricular systolic dysfunction global with estimated ejection fraction of 35%. Based on the above angiographic findings we will consider PCI to the left circumflex artery and the right coronary artery Optimize medical therapy with beta-theo and LYNDSEY inhibitor * * Thank you for allowing me to participate in the care of your patient. Please don't hesitate to call if any issues arise. HPI Consult Data Date of Consult: 12/07/22 HPI Narrative HPI Narrative: DOLORES BOND, is a 57 F who presents to the emergency room with progressive shortness of breath brought on by minimal activity as well as orthopnea. She denies any pedal edema but she has had a cough for the past couple of weeks and initially thought it was a respiratory viral illness. However last night her breathing became more labored and she had gurgling in her lungs. She presented to the emergency room was evaluated was noted to be in sinus tachycardia with no acute changes. She underwent a CT scan of her chest which was negative for PE but bilateral infiltrates were noted suggestive of pulmonary edema. In addition she was noted to have significant calcification of the left anterior descending artery and circumflex artery distribution noted on the CAT scan. Cardiology was called for further evaluation and management. Her cardiac troponin enzymes however remained normal. She denies any chest pain or palpitations. She is currently fairly comfortable. She does have a significant history of coronary artery disease in the family as well as diabetes mellitus. [facility] Medical History Depression Diabetes High cholesterol Neuropathy Vertigo Home Medications aspirin 81 mg tablet,delayed release 81 mg PO DAILY Check with primary doctor 06/10/19 [History Last Taken Unknown] glimepiride 4 mg tablet 4 mg PO DAILY 06/10/19 [History Last Taken Unknown] metformin 1,000 mg tablet 1,000 mg PO DAILY 06/10/19 [History Last Taken Unknown] multivitamin 1 ea PO DAILY 06/10/19 [History Last Taken Unknown] omeprazole 20 mg capsule,delayed release 20 mg PO DAILY 06/10/19 [History Last Taken Unknown] bupropion HCl 150 mg 24 hr tablet, extended release 150 mg PO DAILY 12/06/22 [History Last Taken Unknown] duloxetine 60 mg capsule,delayed release 90 mg PO DAILY 12/06/22 [History Last Taken Unknown] fexofenadine 180 mg tablet 180 mg PO DAILY 12/06/22 [History Last Taken Unknown] hydrochlorothiazide 25 mg tablet 25 mg PO DAILY 12/06/22 [History Last Taken Unknown] insulin glargine 100 unit/mL (3 mL) subcutaneous pen 35 unit subcut QPM 12/06/22 [History Last Taken Unknown] meclizine 25 mg tablet 25 mg PO DAILY PRN Dizziness 12/06/22 [History Last Taken Unknown] pregabalin 100 mg capsule 100 mg PO DINNER neuropathy 12/06/22 [History Last Taken Unknown] pregabalin 200 mg capsule 200 mg PO BID neuropathy 12/06/22 [History Last Taken Unknown] rosuvastatin 10 mg tablet 10 mg PO DAILY Check with primary doctor 12/06/22 [History Last Taken Unknown] Allergy/AdvReac Type Severity Reaction Status Date / Time dulaglutide [From [facility]] Allergy Nausea/Vom/ Verified 12/06/22 08:12 Diarrhea Family History Mother Heart disease Social History Smoking Status: Former smoker ROS Constitutional Constitutional: Denies fever(s) or weight loss Eyes Eyes: Reports systems reviewed and no addt'l complaints, except as documented ENT HEENT: Reports systems reviewed and no addt'l complaints, except as documented Cardiovascular Cardiovascular: Reports dyspnea at rest and dyspnea on exertion; Denies chest pain at rest, chest pain with activity, edema, palpitations or paroxysmal nocturnal dyspnea Respiratory/Chest Respiratory/Chest: Reports dyspnea on exertion, productive cough, shortness of breath at rest and shortness of breath with exertion Gastrointestinal Gastrointestinal: Denies change in bowel habits, nausea, vomiting or weight changes Genitourinary Genitourinary: Denies difficulty urinating Musculoskeletal Musculoskeletal: Denies joint stiffness or muscle weakness Integumentary Integumentary: Denies lesions Neurologic Neurologic: Denies dizziness or syncope Psychiatric Psychiatric: Denies anxiety Endocrine Endocrinology: Denies excessive sweating or fatigue Hematologic/Lymphatic Hematologic/Lymphatic: Denies anemia Allergic/Immunologic Allergic/Immunologic: Denies seasonal rhinorrhea Physical Exam Const alert and no apparent distress Constitutional Narrative: Oriented HEENT normocephalic and head/scalp atraumatic Eyes Eyes Narrative: EOM grossly intact, anicteric Neck supple Resp normal respiratory effort and clear to auscultation bilaterally Cardio regular rate and regular rhythm GI soft to palpation, non-tender and non-distended Extremity Extremity Narrative: No edema appreciated Neuro moves all extremities Neuro Narrative: No overt focal deficits appreciated Psych Psych Narrative: Cooperative Risk Stratification Risk Stratification Applicable: Yes Age >/= 65: No >/= 3 CAD Risk Factors (HTN, HLD, DM, family hx of CAD, or current smoker): No Aspirin Use in the Past 7 Days: No Severe Angina (>/= episodes in 24 hours): No EKG ST Changes >/= 0.5mm: No Positive Cardiac Marker: No CARLOS Risk Stratification Score: 0 CARLOS % Risk: 5% Risk Objective Data Vital Signs: Vital Signs Temp Pulse Resp BP Pulse Ox O2 Del Method O2 Flow Rate 97.8 F 97 18 124/83 H 97 Room Air 2 12/07/22 10:28 12/07/22 10:28 12/07/22 10:28 12/07/22 10:28 12/07/22 10:28 12/07/22 10:28 12/06/22 22:00 Oxygen Flow Rate (L/min) 2 Oxygen Delivery Method Room Air Weight: 205 lb 4.006 oz Body Mass Index (BMI) 38.2 Intake & Output: Intake and Output for Last 24 Hours 12/05/22 12/06/22 12/07/22 23:59 23:59 23:59 Intake Total 450 / 450 Output Total 1900 / 1900 Balance 450 / -850 -1900 / -1900 Lab / Micro Data Result Diagrams: 12/07/22 04:42 12/07/22 04:42 Labs: Laboratory Results - last 24 hr 12/06/22 08:37: B-Natriuretic Peptide 141.7 H 12/06/22 09:57: COVID-19 (ROBERTA) Not Detected 12/06/22 11:53: Troponin I High Sens 26 12/06/22 13:38: POC Glucose 218 H 12/06/22 14:37: Troponin I High Sens 25 12/06/22 17:57: POC Glucose 344 H 12/06/22 21:33: POC Glucose 324 H 12/07/22 04:42: WBC 10.6, RBC 4.24, Hgb 13.0, Hct 38.2, MCV 90.1, MCH 30.7, MCHC 34.0, RDW Std Deviation 44.5 H, RDW Coeff of Susan 13.7, Plt Count 278, MPV 10.0, Immature Gran % (Auto) 0.300, Neut % (Auto) 68.1, Lymph % (Auto) 23.3, [place] % (Auto) 7.8, Eos % (Auto) 0.0, Baso % (Auto) 0.5, Absolute Neuts (auto) 7.2, Absolute Lymphs (auto) 2.47, Nucleated RBC % 0 12/07/22 04:42: Sodium 136, Potassium 3.8, Chloride 99, Carbon Dioxide 28.0, Anion Gap 9, BUN 15, Creatinine 0.88, Estim Creat Clear Calc 56.46, Est GFR (MDRD) Af Amer 85, Est GFR (MDRD) Non-Af 70, BUN/Creatinine Ratio 16.9, Glucose 185 H, Calcium 9.6 12/07/22 06:28: POC Glucose 179 H Micro: Microbiology 12/06/22 08:37 Nasal Secretion SARS-CoV-2 & FLU Antigen (Rapid) - Final Rhythm Strip Rhythm Strip: Sinus Tach Rate: 108 Ectopy: None Cardiology Labs/Tests 12/06/22 08:37: B-Natriuretic Peptide 141.7 H 12/07/22 04:42: WBC 10.6, RBC 4.24, Hgb 13.0, Hct 38.2, MCV 90.1, MCH 30.7, MCHC 34.0, Plt Count 278, MPV 10.0, Immature Gran % (Auto) 0.300, Neut % (Auto) 68.1, Lymph % (Auto) 23.3, [place] % (Auto) 7.8, Eos % (Auto) 0.0, Baso % (Auto) 0.5, Absolute Neuts (auto) 7.2, Nucleated RBC % 0 12/07/22 04:42: Sodium 136, Potassium 3.8, Chloride 99, Carbon Dioxide 28.0, Anion Gap 9, BUN 15, Creatinine 0.88, Est GFR (MDRD) Af Amer 85, Est GFR (MDRD) Non-Af 70, BUN/Creatinine Ratio 16.9, Glucose 185 H, Calcium 9.6 Rhythm: EKG: ECHO: Stress Test: Cardiac Cath: PCI: CT Surgery: Holter monitor: EPS: PPM: CXR: Chest CT Scan:
--- NOTE | 2022-12-07 13:15 | CASEMGMT ---
RN SOFIYA Face to Face with patient for initial transition planning/care coordination assessment. RN CM introduced self and role at [facility]. Patient lying in bed, alert and oriented, family at bedside. Patient willing to participate in assessment and is able to answer all questions appropriately. Care providers, pharmacy, and demographics verified. Patient wishes to discharge home, denies need for home health at this time. Patient states she has no further needs or concerns at this time. CM to follow for discharge planning needs that may arise. PCP: Alexi Specialists: none Preferred [facility]acy[facility] Insurance: none Prescription Benefit: none Living Will/HPOA: none LNOK: , daughter, son Living Arrangements: Patient lives with , daughter, and son in a single story townhouse with 1 step to enter. Patient states he is independent at home. Transportation: daughter, self, DME/HHC: Patient denied previous DME, HHC, or SNF Disposition Plan: Patient to discharge home with family support and follow-up plans in place. Belkys JUDGE, RN, CM
--- NOTE | 2022-12-07 13:15 | EKG12_ITS ---
Test Reason : AM EKG Blood Pressure : / mmHG Vent. Rate : 084 BPM Atrial Rate : 084 BPM P-R Int : 192 ms QRS Dur : 094 ms QT Int : 396 ms P-R-T Axes : 045 012 073 degrees QTc Int : 467 ms Normal sinus rhythm Nonspecific T wave abnormality Abnormal ECG When compared with ECG of 07-DEC-2022 13:26, MANUAL COMPARISON REQUIRED, DATA IS UNCONFIRMED Confirmed by DIRK LOPEZ, JEREMY ([id number]), technical editor CATINA LENTZ ([id number]) on 12/11/2022 9:06:22 AM Referred By: Confirmed By:CROW CAVAZOS MD
[2022-12-07] MEDS: Pregabalin 50 MG Capsule 200 MG PO ×2 (13:43→23:03)
[2022-12-07] MEDS: 0.9% Normal Saline 1,000 ML 75 ML IV (13:50)
[2022-12-07 14:05] LABS: Bedside Glucose 212 mg/dL (74-106)
--- NOTE | 2022-12-07 14:11 | CRPHASE1_ITS ---
Patient Communication Former Patient:: Phase I Guide to Cardiac Rehab Given to Patient:: Yes Cardiac Rehab Facility Choice List Given to Patient:: Yes Choice Program [facility] CR PHII:: Communication Given to CR Medical Collections Representative:: Deyanira Casillas Cardiac Rehabilitation Info Cardiac Rehabilitation Program Information: Cardiac Rehab The cardiac rehab team at [facility] consists of highly skilled exercise physiologists, nurses, respiratory therapists and physicians working together with you. Our purpose is to help you have a full recovery and achieve the goals you set for yourself. Over the years many of our patients have returned to activities they assumed they would never do again! We can help restore your confidence and motivation to make lifestyle changes that can have a significant impact on your health and quality of life! We can help answer questions and concerns you may have about exercise, lifestyle, medications, diet, stress and anxiety which are common following a hospitalization. WE monitor ECG and vital signs during exercise and discuss your progress with you and report to your physician(s). Cardiac Rehab is proven to help reduce readmissions, improve functional capacity and lower recurrence of problems with your heart. Our Cardiac Rehab program is Certified by the [place] [employer] and Pulmonary [employer] (AACVPR) and Accredited by the [place] [employer] through our [facility]. You can contact us at . We invite you to call us with your questions or to get started in our program. If you have other questions or concerns be sure to ask your physician/provider during your follow-up visit. WE look forward to seeing you!
--- NOTE | 2022-12-07 14:13 | CRPH1.INSTRU ---
General Education CAD and cardiac anatomy and function:: Patient communicates acknowledgment Explanation of diagnoses and procedures:: Patient communicates acknowledgment Sign/Symptoms of [place]:: Patient communicates acknowledgment Antiplatelet therapy: Patient communicates acknowledgment Dyslipidemia Patient Dyslipidemia Risk Factors Are:: Total Cholesterol Dyslipidemia Response Code:: Patient communicates acknowledgment Overweight/Obesity Patient Overweight/Obesity Risk Factors Are:: Obesity - > or = 30 Recommendations Include:: Reduced calorie diet Overweight/Obesity:: Patient communicates acknowledgment Hypertension Recommendations Include:: BP <130/80 if diabetic Hypertension:: Patient communicates acknowledgment Heart Disease Patient Heart Disease Risk Factors Are:: Previous cardiac event Heart Disease Response Code:: Patient communicates acknowledgment Diabetes Patient Diabetes Risk Factors Are:: Elevated blood sugars Recommendations Include:: Maintain fasting blood sugars 70-110 md/dL, Diabetic dietary guidelines Diabetes:: Patient communicates acknowledgment Stress Patient Stress Risk Factors Are:: Patient denies stress as a risk factor Recommendations Include:: Stress management techniques Stress Response Code:: Patient communicates acknowledgment
[2022-12-07] MEDS: Acetaminophen 325 MG Tablet 650 MG PO (14:48)
--- NOTE | 2022-12-07 16:46 | CHAPLAIN ---
Type of Pastoral Visit _x__ Initial Visit ___ Follow-up Visit ___ On-call Visit ___ General Patient Visit ___ Spiritual Assessment ___ Family Conference ___ Bereavement ___ Rapid Response ___ Code Blue ___ Other (describe below) Pastoral Care Referral From _x__ Patient ___ Family ___ Nurse ___ Physician ___ Cleater ___ Track Laborer ___ Other (describe below) Sacrament/Intervention _x__ Active listening ___ Anointing ___ Judaism ___ Bereavement ___ Communion ___ Maria G exploration ___ ___ Life review _x__ Prayer ___ Reconciliation ___ Sacrament of Sick ___ Supportive presence ___ Wedding ___ Other (describe below) Pastoral Comments patient reports being surprised by her health need and is experiencing improvement now; pt has family support in the room at this time; pt states she has no other concerns at this time but would gladly receive a prayer
[2022-12-07] MEDS: Furosemide 40 MG Tablet PO (17:14)
[2022-12-07] MEDS: Pregabalin 50 MG Capsule 100 MG PO (17:14)
[2022-12-07] MEDS: Carvedilol 6.25 MG Tablet PO (17:14)
[2022-12-07 17:30] LABS: Bedside Glucose 264 mg/dL (74-106)
[2022-12-07] MEDS: Atorvastatin Calcium 20 MG Tablet PO (21:17)
[2022-12-07] MEDS: TICAGRELOR 90 MG TABLET PO (21:17)
[2022-12-07] MEDS: Insulin Glargine-YFGN 100 UNIT/ML Pen 35 UNIT SC (21:18)
[2022-12-07 21:50] LABS: Bedside Glucose 194 mg/dL (74-106)
[2022-12-08 04:30] VITALS: BP 130/92; PULSE 97; RESP 18; TEMP 36.6; O2SAT 97
[2022-12-08 04:34] LABS: Absolute Lymphocyte Count 3.28 X10^3/uL (0.83-4.51); Absolute Neutrophil Count 5.6 X10^3/uL (2.0-7.7); Basophil# 0.13 X10^3/uL; Basophil% 1.3 % (0-1); Eosinophil# 0.13 X10^3/uL; Eosinophils% 1.3 % (0-5); Hematocrit 39.6 % (37-47); Hemoglobin 13.1 g/dL (12.0-15.0); Lymphocyte # 3.28 X10^3/ul (0.83-4.51); Lymphocyte % 32.5 % (19-41); Mean Corp Hgb Conc 33.1 g/dL (32-36); Mean Corpuscular Volume 90.8 fL (81-99); Mean Platelet Vol. 9.7 fl (6.2-12.0); Monocyte# 0.96 X10^3/uL; Monocyte% 9.5 % (0-10); NRBC Flagged by Analyzer 0 % (0-5); Neutrophil # 5.55 X10^3/uL (2.7-7.7); Platelet Count 277 K/mm3 (150-450); RBC Distribution Width CV 13.7 % (11.6-14.6); RBC Distribution Width SD 44.6 fl (35.1-43.9); Red Blood Count 4.36 M/mm3 (4.2-5.4); White Blood Count 10.1 K/mm3 (4.4-11.0)
[2022-12-08 04:54] LABS: ALB/GLOB Ratio 0.8 RATIO (0.9-2.4); AST(SGOT) 28 U/L (15-37); Alanine Aminotransfer ALT/SGPT 22 U/L (13-56); Albumin, Serum 3.2 g/dL (3.2-5.0); Alkaline Phosphatase 84 U/L (45-117); Anion Gap 10 (5-15); BUN 18 mg/dL (7-18); BUN/Creat Ratio 20.3 RATIO (10-20); Chloride 102 mmol/L (98-107); Creatinine, Serum 0.89 mg/dL (0.55-1.02); EST Glomerular Filtration Rate 70 mL/min (>60); Est Glom Filt Rate - Afr Amer 85 mL/min (>60); Estimated Creatinine Clearance 55.82 ml/min; Globulin 4.2 g/dL (2.2-4.2); Glucose 133 mg/dL (74-106); Potassium 2.9 mmol/L (3.5-5.1); Protein, Total 7.4 g/dL (6.4-8.2); Sodium Level 140 mmol/L (136-145)
[2022-12-08 07:26] LABS: Bedside Glucose 132 mg/dL (74-106)
--- NOTE | 2022-12-08 08:22 | PCM.PN.CARD ---
Subjective Subjective The patient was seen and evaluated. Appears to be doing well. Objective Data Vital Signs: Vital Signs Temp Pulse Resp BP Pulse Ox O2 Del Method O2 Flow Rate 97.9 F 97 18 130/92 H 97 Room Air 2 12/08/22 04:30 12/08/22 04:30 12/08/22 04:30 12/08/22 04:30 12/08/22 04:30 12/08/22 04:45 12/08/22 04:30 Oxygen Flow Rate (L/min) 2 Oxygen Delivery Method Room Air Weight: 202 lb 13.204 oz Body Mass Index (BMI) 38.2 Intake & Output: Intake and Output for Last 24 Hours 12/06/22 12/07/22 12/08/22 23:59 23:59 23:59 Intake Total 450 / 450 360 / 360 1000 / 1000 Output Total 2300 / 3700 1400 / 1400 Balance 450 / -850 -1940 / -3340 -400 / -400 Lab / Micro Data Result Diagrams: 12/08/22 04:17 12/08/22 04:17 Labs: Laboratory Results - last 24 hr 12/07/22 13:41: POC Glucose 212 H 12/07/22 17:08: POC Glucose 264 H 12/07/22 21:16: POC Glucose 194 H 12/08/22 04:17: WBC 10.1, RBC 4.36, Hgb 13.1, Hct 39.6, MCV 90.8, MCH 30.0, MCHC 33.1, RDW Std Deviation 44.6 H, RDW Coeff of Susan 13.7, Plt Count 277, MPV 9.7, Immature Gran % (Auto) 0.400, Neut % (Auto) 55.0, Lymph % (Auto) 32.5, [place] % (Auto) 9.5, Eos % (Auto) 1.3, Baso % (Auto) 1.3 H, Absolute Neuts (auto) 5.6, Absolute Lymphs (auto) 3.28, Nucleated RBC % 0 12/08/22 04:17: Sodium 140, Potassium 2.9 L, Chloride 102, Carbon Dioxide 28.0, Anion Gap 10, BUN 18, Creatinine 0.89, Estim Creat Clear Calc 55.82, Est GFR (MDRD) Af Amer 85, Est GFR (MDRD) Non-Af 70, BUN/Creatinine Ratio 20.3 H, Glucose 133 H, Calcium 9.0, Total Bilirubin 0.50, AST 28, ALT 22, Alkaline Phosphatase 84, Total Protein 7.4, Albumin 3.2, Globulin 4.2, Albumin/Globulin Ratio 0.8 L 12/08/22 07:06: POC Glucose 132 H Rhythm Strip Rhythm Strip: Sinus Tach Rate: 108 Ectopy: None Cardiology Labs/Tests 12/08/22 04:17: WBC 10.1, RBC 4.36, Hgb 13.1, Hct 39.6, MCV 90.8, MCH 30.0, MCHC 33.1, Plt Count 277, MPV 9.7, Immature Gran % (Auto) 0.400, Neut % (Auto) 55.0, Lymph % (Auto) 32.5, [place] % (Auto) 9.5, Eos % (Auto) 1.3, Baso % (Auto) 1.3 H, Absolute Neuts (auto) 5.6, Nucleated RBC % 0 12/08/22 04:17: Sodium 140, Potassium 2.9 L, Chloride 102, Carbon Dioxide 28.0, Anion Gap 10, BUN 18, Creatinine 0.89, Est GFR (MDRD) Af Amer 85, Est GFR (MDRD) Non-Af 70, BUN/Creatinine Ratio 20.3 H, Glucose 133 H, Calcium 9.0, Total Bilirubin 0.50 Rhythm: EKG: ECHO: Stress Test: Cardiac Cath: PCI: CT Surgery: Holter monitor: EPS: PPM: CXR: Chest CT Scan: Radiography Diagnostic Testing: Radiology Impression Echocardiogram 12/06/22 13:17 Interpretation Summary Normal LV size. Left ventricular systolic function is lower limits of normal. The estimated ejection fraction is 50 %. Stage 3 diastolic dysfunction. Ordering Physician: Victor Manuel Guzman Referring Physician: Alexi Truong Performed By: Treva Rosa, ORIANA, RVT Physical Exam Const alert and no apparent distress Constitutional Narrative: Oriented HEENT normocephalic and head/scalp atraumatic Eyes Eyes Narrative: EOM grossly intact, anicteric Neck supple Resp normal respiratory effort and clear to auscultation bilaterally Cardio regular rate and regular rhythm GI soft to palpation, non-tender and non-distended Extremity Extremity Narrative: No edema appreciated Neuro moves all extremities Neuro Narrative: No overt focal deficits appreciated Psych Psych Narrative: Cooperative Assessment & Plan Assessment/Plan (1) Pulmonary edema: PLAN: She did present with pulmonary edema and has improved with diuretics. Her CAT scan demonstrated significant coronary calcification. Cardiac catheterization demonstrated the following: Normal left main coronary artery. Left anterior descending artery with mild calcification and minimal disease. Left circumflex artery which is nondominant with 80% mid segment stenosis. Dominant large right coronary artery with mild calcification and eccentric 75% stenosis noted. Left ventricular systolic dysfunction global with estimated ejection fraction of 35%. Based on the above angiographic findings she underwent PCI to the left circumflex artery and the right coronary artery Optimize medical therapy with beta-theo and LYNDSEY inhibitor Continue aspirin and antiplatelet agent Continue high intensity statin Thank you for allowing me to participate in the care of your patient. Please don't hesitate to call if any issues arise.
[2022-12-08] MEDS: Aspirin E.C. 81 MG Tablet PO (08:42)
[2022-12-08] MEDS: Carvedilol 6.25 MG Tablet PO (08:42)
[2022-12-08] MEDS: Potassium Chloride Oral Tablet 20 MEQ 60 MEQ PO (09:50)
[2022-12-08] MEDS: DULoxetine Hcl 30 MG Capsule 90 MG PO (09:51)
[2022-12-08] MEDS: Loratadine 10 MG Tablet PO (09:51)
[2022-12-08] MEDS: TICAGRELOR 90 MG TABLET PO ×2 (09:51→15:26)
[2022-12-08] MEDS: Furosemide 40 MG Tablet PO (09:51)
[2022-12-08] MEDS: buPROPion (XL) 150 MG TABLET.XL PO (09:52)
[2022-12-08] MEDS: Lisinopril 5 MG Tablet 10 MG PO (09:52)
[2022-12-08] MEDS: Enoxaparin 40 MG/0.4 ML Syringe SC (09:53)
[2022-12-08] MEDS: Pantoprazole Sodium 20 MG Tablet PO (09:56)
[2022-12-08] MEDS: Pregabalin 50 MG Capsule 200 MG PO (09:56)
[2022-12-08 10:00] VITALS: BP 120/72; PULSE 100; RESP 16; TEMP 36.6; O2SAT 91
--- NOTE | 2022-12-08 10:00 | EKG12_ITS ---
Test Reason : PCI Blood Pressure : / mmHG Vent. Rate : 094 BPM Atrial Rate : 094 BPM P-R Int : 190 ms QRS Dur : 090 ms QT Int : 422 ms P-R-T Axes : 048 043 074 degrees QTc Int : 527 ms Normal sinus rhythm Normal ECG When compared with ECG of 06-DEC-2022 08:44, No significant change was found Confirmed by DIRK LOPEZ, JEREMY ([id number]), publications editor CATINA LENTZ ([id number]) on 12/11/2022 9:07:10 AM Referred By: DIRK Confirmed By:CROW CAVAZOS MD
[2022-12-08] MEDS: Insulin Lispro 100 UNIT/ML INSULN.PEN SC (11:53)
[2022-12-08 12:21] LABS: Bedside Glucose 307 mg/dL (74-106)
--- NOTE | 2022-12-08 14:37 | PCM.DC ---
Discharge Instructions Diet Discharge Diet: - (DASH diet) Activity Discharge Activity: Return to Normal Activity Follow Up Care Test Results: Test results from this visit will be discussed in further detail at your follow-up appointment, if applicable. Discharge Plan Admission Admit Date/Time: 12/06/22 12:19 Primary Reason for Your Visit: Shortness of breath Attending Provider: Brandi Cooper Primary Care Provider: Alexi Truong Consulting Providers: Victor Manuel Guzman ; Jonny Fischer Instructions Patient Instructions: Coronary Stents, DASH Plan Eat Heart Healthy Food, CAD Additional Instructions / Restrictions: *Please take this with you to your next doctors appointment* DISCHARGE INSTRUCTIONS PLEASE READ ? You had several medication changes, you will take Lasix 40 mg twice daily, lisinopril 10 mg and you will also take carvedilol 6.25 mg twice daily, these are for your heart ?You will be discharged with a prescription for clopidogrel (Plavix), tomorrow morning please take 300 mg (4 tabs) and thereafter you will take 75 mg daily, this is in addition to your aspirin ?With these changes you will no longer be take your hydrochlorothiazide ? Continue to take your aspirin 81 mg daily and your rosuvastatin will be increased to 20 mg ? You will need to have a BMP (blood work) to check your kidney function and potassium in 3 to 5 days, please call your primary care physician's office to obtain order for lab work upon discharge. ? As you will be taking the Lasix 40 mg twice daily you will also be discharged with a potassium supplementation which you will take daily. It is important that your blood work to be checked and you follow-up closely with your primary care physician as your Lasix dose will likely need changed over time, would recommend following up with your primary care physician within 1 week ?Your omeprazole was discontinued and in its place you will take pantoprazole, this is because of an interaction between that and your new heart medication. ?All new scripts have been sent to your preferred pharmacy on file ? You will follow-up with cardiology in the office on 01/05/2023 at 1 PM. -Please call your primary care provider's office upon discharge to schedule a hospital follow up within 1 week. -For any concerning signs or symptoms please call 911 or proceed to the nearest emergency department -Weigh yourself every day. A sudden weight gain can mean you are retaining fluid. Weigh yourself at the same time of day and in the same kind of clothes. Ideally, weigh yourself first thing in the morning after you empty your bladder, but before you eat breakfast. -Please call your physician if your weight goes up by more than 2 pounds in 1 day or 5 pounds in 1 week. This can be a sign that you are retaining more fluid than you should be. Clues to weight gain include checking your ankles for swelling, or noticing you are short of breath when you lie down -Please limit your sodium intake to less than 3 g/day. Here are tips: Limit canned, dried, packaged, and fast foods. Don't add salt to your food at the table. Season foods with herbs instead of salt when you cook. When you eat out, ask that the supervising chef not add any salt to your dish. Don't eat fried or greasy foods. Be careful of bottled beverages. They can contain a lot of salt -Call 911 right away if you have: -Severe shortness of breath, such that you can't catch your breath even while resting -Severe chest pain that does not resolve with rest or nitroglycerin -[place], foamy mucus with cough and shortness of breath -An ongoing rapid or irregular heartbeat -Passing out or fainting -Stroke symptoms such as sudden numbness or weakness on one side of your face, arm, or leg or sudden confusion, trouble speaking or vision changes Discharge Orders/Prescriptions Prescriptions: New furosemide 40 mg Tablet 40 mg PO BIDLX 30 Days Qty: 60 0RF carvedilol 6.25 mg Tablet 6.25 mg PO BIDCM 30 Days Qty: 60 0RF lisinopril 5 mg Tablet 10 mg PO DAILY 30 Days Qty: 60 0RF potassium chloride 20 mEq tablet extended release 20 meq PO DAILY Qty: 30 0RF pantoprazole 20 mg Tablet,Delayed Release (Dr/Ec) 20 mg PO DAILY 30 Days Qty: 30 0RF clopidogrel 75 mg tablet 75 mg PO DAILY Qty: 90 0RF Rx Instructions: Take 300mg (4tabs) on 12/09 then 75mg daily starting 12/10 Continued glimepiride 4 MG tablet 4 mg PO DAILY Label Comments: TAKE 1 TABLET BY MOUTH ONCE DAILY WITH BREAKFAST multivitamin 1 EACH tablet 1 ea PO DAILY aspirin 81 MG tablet,delayed release (DR/EC) 81 mg PO DAILY metformin 1,000 MG tablet 1,000 mg PO DAILY fexofenadine 180 mg Tablet 180 mg PO DAILY meclizine 25 mg Tablet 25 mg PO DAILY PRN (Reason: Dizziness) bupropion HCl 150 mg tablet extended release 24 hr 150 mg PO DAILY Label Comments: TAKE 1 TABLET BY MOUTH ONCE DAILY duloxetine 60 mg capsule,delayed release(DR/EC) 90 mg PO DAILY Label Comments: TAKE 1 CAPSULE BY MOUTH ONCE DAILY insulin glargine 100 unit/mL (3 mL) Insulin Pen 35 unit SUBCUT QPM pregabalin 100 mg capsule 100 mg PO DINNER Label Comments: TAKE 1 CAPSULE BY MOUTH ONCE DAILY IN ADDITION TO 200MG TAKEN TWICE DAILY pregabalin 200 mg capsule 200 mg PO BID Label Comments: TAKE 1 CAPSULE BY MOUTH TWICE DAILY FOR 90 DAYS - DO NOT START BEFORE 2021 Changed rosuvastatin 10 mg tablet 20 mg PO DAILY 30 Days Qty: 60 0RF Label Comments: TAKE 1 TABLET BY MOUTH ONCE DAILY Discontinued omeprazole 20 MG capsule,delayed release(DR/EC) 20 mg PO DAILY hydrochlorothiazide 25 mg tablet 25 mg PO DAILY Label Comments: TAKE 1 TABLET BY MOUTH ONCE DAILY Referrals / Follow Up: Alexi Truong MD [Primary Care Provider] - Within 1 Week Cheri Orona PA [Med Staff - [facility]] - 01/05/23 1:00 pm Disposition Disposition (needs filled in before D/C Order can be placed): Home, Self Care
[2022-12-08 14:53] VITALS: BP 105/71; PULSE 92; RESP 16; TEMP 36.3; O2SAT 95
--- NOTE | 2022-12-08 14:55 | DS.PCM_ITS ---
Providers Date of Admission: 12/06/22 Date of Discharge: 12/08/22 Primary Care Physician: Dr. Alexi Truong MD Consultations 12/07/22 08:54 Consult: Cardiology Routine Consulting Provider: Jonny Fischer Reason for Consult: seg high grade LAD and LCx stenosis on CTA, also concern for new onset CHF EMERGENT Consult: No MD Notified: Yes Date Notified: 12/07/22 Time Notified: 08:54 Method of Notification: Text Reason For Visit: HYPOXIA Diagnosis Discharge Diagnosis (1) Pulmonary edema: Status: Acute Code(s): J81.1 - Chronic pulmonary edema Plan #Hypoxia with pulmonary edema secondary to new onset heart failure with preserved ejection fraction #Type 2 diabetes mellitus #Essential hypertension #Anxiety and depression #GERD #Class II obesity with BMI of 36.9 Medications at Discharge Home Medications aspirin 81 mg tablet,delayed release 81 mg PO DAILY heart health 06/10/19 glimepiride 4 mg tablet 4 mg PO DAILY diabetes 06/10/19 metformin 1,000 mg tablet 1,000 mg PO DAILY diabetes 06/10/19 multivitamin 1 ea PO DAILY vitamin 06/10/19 bupropion HCl 150 mg 24 hr tablet, extended release 150 mg PO DAILY mental health 12/06/22 duloxetine 60 mg capsule,delayed release 90 mg PO DAILY mental health 12/06/22 fexofenadine 180 mg tablet 180 mg PO DAILY allergies 12/06/22 insulin glargine 100 unit/mL (3 mL) subcutaneous pen 35 unit subcut QPM diabetes 12/06/22 meclizine 25 mg tablet 25 mg PO DAILY PRN Dizziness 12/06/22 pregabalin 100 mg capsule 100 mg PO DINNER neuropathy 12/06/22 pregabalin 200 mg capsule 200 mg PO BID neuropathy 12/06/22 carvedilol 6.25 mg tablet 6.25 mg PO BIDCM 30 days #60 tabs 12/08/22 clopidogrel 75 mg tablet 75 mg PO DAILY #90 tabs 12/08/22 furosemide 40 mg tablet 40 mg PO BIDLX 30 days #60 tabs 12/08/22 lisinopril 5 mg tablet 10 mg PO DAILY 30 days #60 tabs 12/08/22 pantoprazole 20 mg tablet,delayed release 20 mg PO DAILY 30 days #30 tabs 12/08/22 potassium chloride 20 mEq tablet,extended release 20 meq PO DAILY #30 tabs 12/08/22 rosuvastatin 10 mg tablet 20 mg PO DAILY Check with primary doctor 30 days #60 tabs 12/08/22 Hospital Course Procedures - (2d echo, heart cath w/ PCI SAMI x2) Summary of Care Provided Minutes Spent on Discharge: 33 Hospital Course: 57-year-old female with history of type 2 diabetes mellitus who presented to [facility] 12/06/2022 with shortness of breath for for several weeks with difficulty lying flat. She had a CT in the chest which was negative for PE but did show pulmonary edema and she was admitted. There was also decreased O2 sat which was suspected to be secondary to congestive heart failure. She was started on Lasix and 2D echo ordered and cardiac enzymes monitored. Enzymes negative but CT did show coronary calcifications so car diology consulted and took patient for heart cath on 12/07 and she had stent to left circumflex and RCA and tolerated these well. Her echo did demonstrate stage III diastolic dysfunction with systolic function on lower limits of normal and EF 50%. She did well on Lasix and tolerated her new medications. Discussed with cardiology patient stable for discharge. On day of discharge she reports her breathing is much improved and has no chest pain. Denied other complaints. Discharge instructions as follows: ? You had several medication changes, you will take Lasix 40 mg twice daily, lisinopril 10 mg and you will also take carvedilol 6.25 mg twice daily, these are for your heart ?You will be discharged with a prescription for clopidogrel (Plavix), tomorrow morning please take 300 mg (4 tabs) and thereafter you will take 75 mg daily, this is in addition to your aspirin ?With these changes you will no longer be take your hydrochlorothiazide ? Continue to take your aspirin 81 mg daily and your rosuvastatin will be increased to 20 mg ? You will need to have a BMP (blood work) to check your kidney function and potassium in 3 to 5 days, please call your primary care physician's office to obtain order for lab work upon discharge. ? As you will be taking the Lasix 40 mg twice daily you will also be discharged with a potassium supplementation which you will take daily.? It is important t hat your blood work to be checked and you follow-up closely with your primary care physician as your Lasix dose will likely need changed over time, would recommend following up with your primary care physician within 1 week ?Your omeprazole was discontinued and in its place you will take pantoprazole, this is because of an interaction between that and your new heart medication. ?All new scripts have been sent to your preferred pharmacy on file ? You will follow-up with cardiology in the office on 01/05/2023 at 1 PM. -Please call your primary care provider's office upon discharge to schedule a h ospital follow up within 1 week. -For any concerning signs or symptoms please call 911 or proceed to the nearest emergency department -Weigh yourself every day. A sudden weight gain can mean you are retaining fluid. Weigh yourself at the same time of day and in the same kind of clothes. Ideally, weigh yourself first thing in the morning after you empty your bladder, but before you eat breakfast. -Please call your physician if your weight goes up by more than 2 pounds in 1 day or 5 pounds in 1 week. This can be a sign that you are retaining more fluid than you should be. Clues to weight gain include checking your ankles for swelling, or noticing you are short of breath when you lie down -Please limit your sodium intake to less than 3 g/day. Here are tips: Limit canned, dried, packaged, and fast foods. Don't add salt to your food at the table. Season foods with herbs instead of salt when you cook. When you eat out, ask that the sous chef kitchen manager not add any salt to your dish. Don't eat fried or greasy foods. Be careful of bottled beverages. They can contain a lot of salt -Call 911 right away if you have: -Severe shortness of breath, such that you can't catch your breath even while resting -Severe chest pain that does not resolve with rest or nitroglycerin -[place], foamy mucus with cough and shortness of breath -An ongoing rapid or irregular heartbeat -Passing out or fainting -Stroke symptoms such as sudden numbness or weakness on one side of your face, arm, or leg or sudden confusion, trouble speaking or vision changes Physical Exam Narrative General: Alert, oriented, no apparent distress HEENT: Atraumatic, normocephalic Eyes: Anicteric, normal conjunctiva, extraocular movements grossly intact Neck: Supple Respiratory: Clear to auscultation bilaterally, normal respiratory effort Cardiovascular: Regular rate and rhythm GI: Soft, nontender, nondistended Extremities: No edema Musculoskeletal: Moving all extremities Neuro: No overt focal neurological deficits Skin: No rashes appreciated Psych: Cooperative Weight / BMI Weight Weight: 92 kg Body Mass Index (BMI) 38.2 ABG / Lab / Microbiology Data Result Diagrams: 12/08/22 04:17 12/08/22 04:17 Laboratory: Laboratory Results - last 24 hr 12/07/22 17:08: POC Glucose 264 H 12/07/22 21:16: POC Glucose 194 H 12/08/22 04:17: WBC 10.1, RBC 4.36, Hgb 13.1, Hct 39.6, MCV 90.8, MCH 30.0, MCHC 33.1, RDW Std Deviation 44.6 H, RDW Coeff of [place] 13.7, Plt Count 277, MPV 9.7, Immature Gran % (Auto) 0.400, Neut % (Auto) 55.0, Lymph % (Auto) 32.5, [place] % (Auto) 9.5, Eos % (Auto) 1.3, Baso % (Auto) 1.3 H, Absolute Neuts (auto) 5.6, Absolute Lymphs (auto) 3.28, Nucleated RBC % 0 12/08/22 04:17: Sodium 140, Potassium 2.9 L, Chloride 102, Carbon Dioxide 28.0, Anion Gap 10, BUN 18, Creatinine 0.89, Estim Creat Clear Calc 55.82, Est GFR (MDRD) Af Amer 85, Est GFR (MDRD) Non-Af 70, BUN/Creatinine Ratio 20.3 H, Glucose 133 H, Calcium 9.0, Total Bilirubin 0.50, AST 28, ALT 22, Alkaline Phosphatase 84, Total Protein 7.4, Albumin 3.2, Globulin 4.2, Albumin/Globulin Ratio 0.8 L 12/08/22 07:06: POC Glucose 132 H 12/08/22 11:52: POC Glucose 307 H Microbiology: Microbiology 12/06/22 08:37 Nasal Secretion SARS-CoV-2 & FLU Antigen (Rapid) - Final Radiography Diagnostic Testing: Radiology Impression Echocardiogram 12/06/22 13:17 Interpretation Summary Normal LV size. Left ventricular systolic function is lower limits of normal. The estimated ejection fraction is 50 %. Stage 3 diastolic dysfunction. Ordering Physician: Victor Manuel Guzman Referring Physician: Alexi Truong Performed By: Treva Rosa RDCS, RVT D/C Instructions Discharge Diet: - (DASH diet) Meaningful Use Info Meaningful Use Diagnoses (Choose all that apply): CHF CHF LYNDSEY/ARB ordered at discharge?: Yes Documented LVEF (%): 50 Discharge Plan Admission Admit Date/Time: 12/06/22 12:19 Primary Reason for Your Visit: Shortness of breath Attending Provider: Brandi Cooper Primary Care Provider: Alexi Truong Consulting Providers: Victor Manuel Guzman ; Jonny Fischer Instructions Patient Instructions: Coronary Stents, DASH Plan Eat Heart Healthy Food, CAD Additional Instructions / Restrictions: *Please take this with you to your next doctors appointment* DISCHARGE INSTRUCTIONS PLEASE READ ? You had several medication changes, you will take Lasix 40 mg twice daily, lisinopril 10 mg and you will also take carvedilol 6.25 mg twice daily, these are for your heart ?You will be discharged with a prescription for clopidogrel (Plavix), tomorrow morning please take 300 mg (4 tabs) and thereafter you will take 75 mg daily, this is in addition to your aspirin ?With these changes you will no longer be take your hydrochlorothiazide ? Continue to take your aspirin 81 mg daily and your rosuvastatin will be increased to 20 mg ? You will need to have a BMP (blood work) to check your kidney function and potassium in 3 to 5 days, please call your primary care physician's office to obtain order for lab work upon discharge. ? As you will be taking the Lasix 40 mg twice daily you will also be discharged with a potassium supplementation which you will take daily. It is important that your blood work to be checked and you follow-up closely with your primary care physician as your Lasix dose will likely need changed over time, would recommend following up with your primary care physician within 1 week ?Your omeprazole was discontinued and in its place you will take pantoprazole, this is because of an interaction between that and your new heart medication. ?All new scripts have been sent to your preferred pharmacy on file ? You will follow-up with cardiology in the office on 01/05/2023 at 1 PM. -Please call your primary care provider's office upon discharge to schedule a hospital follow up within 1 week. -For any concerning signs or symptoms please call 911 or proceed to the nearest emergency department -Weigh yourself every day. A sudden weight gain can mean you are retaining fluid. Weigh yourself at the same time of day and in the same kind of clothes. Ideally, weigh yourself first thing in the morning after you empty your bladder, but before you eat breakfast. -Please call your physician if your weight goes up by more than 2 pounds in 1 day or 5 pounds in 1 week. This can be a sign that you are retaining more fluid than you should be. Clues to weight gain include checking your ankles for swelling, or noticing you are short of breath when you lie down -Please limit your sodium intake to less than 3 g/day. Here are tips: Limit canned, dried, packaged, and fast foods. Don't add salt to your food at the table. Season foods with herbs instead of salt when you cook. When you eat out, ask that the sous chef kitchen manager not add any salt to your dish. Don't eat fried or greasy foods. Be careful of bottled beverages. They can contain a lot of salt -Call 911 right away if you have: -Severe shortness of breath, such that you can't catch your breath even while resting -Severe chest pain that does not resolve with rest or nitroglycerin -[place], foamy mucus with cough and shortness of breath -An ongoing rapid or irregular heartbeat -Passing out or fainting -Stroke symptoms such as sudden numbness or weakness on one side of your face, arm, or leg or sudden confusion, trouble speaking or vision changes Discharge Orders/Prescriptions Prescriptions: New furosemide 40 mg Tablet 40 mg PO BIDLX 30 Days Qty: 60 0RF carvedilol 6.25 mg Tablet 6.25 mg PO BIDCM 30 Days Qty: 60 0RF lisinopril 5 mg Tablet 10 mg PO DAILY 30 Days Qty: 60 0RF potassium chloride 20 mEq tablet extended release 20 meq PO DAILY Qty: 30 0RF pantoprazole 20 mg Tablet,Delayed Release (Dr/Ec) 20 mg PO DAILY 30 Days Qty: 30 0RF clopidogrel 75 mg tablet 75 mg PO DAILY Qty: 90 0RF Rx Instructions: Take 300mg (4tabs) on 12/09 then 75mg daily starting 12/10 Continued glimepiride 4 MG tablet 4 mg PO DAILY Label Comments: TAKE 1 TABLET BY MOUTH ONCE DAILY WITH BREAKFAST multivitamin 1 EACH tablet 1 ea PO DAILY aspirin 81 MG tablet,delayed release (DR/EC) 81 mg PO DAILY metformin 1,000 MG tablet 1,000 mg PO DAILY fexofenadine 180 mg Tablet 180 mg PO DAILY meclizine 25 mg Tablet 25 mg PO DAILY PRN (Reason: Dizziness) bupropion HCl 150 mg tablet extended release 24 hr 150 mg PO DAILY Label Comments: TAKE 1 TABLET BY MOUTH ONCE DAILY duloxetine 60 mg capsule,delayed release(DR/EC) 90 mg PO DAILY Label Comments: TAKE 1 CAPSULE BY MOUTH ONCE DAILY insulin glargine 100 unit/mL (3 mL) Insulin Pen 35 unit SUBCUT QPM pregabalin 100 mg capsule 100 mg PO DINNER Label Comments: TAKE 1 CAPSULE BY MOUTH ONCE DAILY IN ADDITION TO 200MG TAKEN TWICE DAILY pregabalin 200 mg capsule 200 mg PO BID Label Comments: TAKE 1 CAPSULE BY MOUTH TWICE DAILY FOR 90 DAYS - DO NOT START BEFORE 2021 Changed rosuvastatin 10 mg tablet 20 mg PO DAILY 30 Days Qty: 60 0RF Label Comments: TAKE 1 TABLET BY MOUTH ONCE DAILY Discontinued omeprazole 20 MG capsule,delayed release(DR/EC) 20 mg PO DAILY hydrochlorothiazide 25 mg tablet 25 mg PO DAILY Label Comments: TAKE 1 TABLET BY MOUTH ONCE DAILY Referrals / Follow Up: Alexi Truong MD [Primary Care Provider] - Within 1 Week Cheri Orona PA [Med Staff - [facility]] - 01/05/23 1:00 pm Disposition Disposition (needs filled in before D/C Order can be placed): Home, Self Care Charges/Coding Visit Charges Inpatient E&M: 07256 Disch Hosp >30min
--- NOTE | 2022-12-09 11:20 | CL.I_ITS ---
Patient Name: DOLORES BOND Study Date: 12/07/2022 Performing: Lorenzo Casillas MD Ht: 62 inches 157.48 cm : 1965 Wt: 205.25 lbs 93.1 kg Age: 57 Gender: female BSA: 1.93 PROCEDURE(S) PERFORMED IC12-(10916/C9600)SAMI W/WO PTCA, SINGLE CORONARY ARTERY IC12-(66400/C9600)SAMI W/WO PTCA, SINGLE CORONARY ARTERY CLINICAL PROFILE AND CO-MORBIDITIES Indications: Suspected CAD, Cardiomyopathy Heart Failure: NYHA Class: 2, Newly Diagnosed: Yes, Heart Failure Type: Systolic Stress/Imaging Stress/Image Study Performed: No CAD Presentations: Other: chf CONCLUSIONS Successful SAMI to mLCx and mRCA RECOMMENDATIONS DESCRIPTION OF PROCEDURE The patient arrived to the procedure lab. The risks and benefits of the procedure as well as a full description of our services here and current unavailability of surgical backup were fully explained to the patient and/or their significant other prior to the catheterization. The Timeout was completed, verifying the correct patient and procedure. The patient's procedural site was prepped and draped in the usual fashion. Local anesthetic was given subcutaneously to right radial region with Lidocaine 2% Using a modified Seldinger technique,arterial access was obtained via the right radial artery, a 6Fr sheath was inserted. Right Coronary Artery selective angiography was then performed in multiple views using a 5 Fr. 4.0 Richmond catheter. Left Coronary Artery selective angiography was performed in multiple views using a 5 Fr. 4.0 Richmond catheter. Left Ventriculography was performed in ROSARIO projection using a 5 Fr. Pigtail catheter. LV to AO pullback pressures were then recorded.The images were reviewed and options discussed. A decision was then made to proceed with an Intervention, IVUS or other adjunct procedure. XB 3.0 Guide catheter was inserted and engaged into the LCA. BMW Guide wire was advanced to the Circumflex. Orsiro 2.25x9 Drug Eluting stent was inserted. Angiogram performed post stent deployment. JR4 Guide catheter was inserted and engaged into the RCA. SC Euphora 3.0x15 Balloon catheter was inserted. PTCA balloon inflated at 12 atms for 9 secs. PTCA balloon inflated at 8 atms for 5 secs. PTCA balloon inflated at 12 atms for 25 secs. Angiogram performed post balloon dilatation. Resolute Bunnell 4.0x26 Drug Eluting stent was inserted. Angiogram performed post stent deployment. The arterial sheath was pulled and a TR Band was applied for hemostasis w/10ml air INTERVENTION INFORMATION LESION SITE: Circumflex (Mid) Lesion Complexity: High/C, chronic total occlusion: No, lesion at bifurcation: No, thrombus present: No, lesion length: 8 mm, culprit lesion: Yes, Previously treated lesion: No, In-stent restenosis: No Pre Stenosis: 90 % Pre intervention CARLOS flow: 3 PROCEDURE: Drug Eluting Stent Post Stenosis: 0 % Post intervention CARLOS flow: 3 Lesion Devices: Andrews .014 190cm BMW Floyd Straight Cordis 6 Fr XB3.0 100cm Guide Catheter [facility] MR SAMI 2.25x9 LESION SITE: RCA (Mid) Lesion Complexity: High/C, chronic total occlusion: No, lesion at bifurcation: No, thrombus present: No, lesion length: 22 mm, culprit lesion: Yes, Previously treated lesion: No Pre Stenosis: 80 % Pre intervention CARLOS flow: 3 PROCEDURE: Drug Eluting Stent with pre dilatation. Post Stenosis: 0 % Post intervention CARLOS flow: 3 Lesion Devices: Andrews .014 190cm BMW Floyd Straight Cordis 6 Fr JR4 100cm Guide Catheter Medtronic SC EUPHORA RX 3.0x15 BALLOON Medtronic Resolute Bunnell RX SAMI 4.0x26 COMPLICATIONS No Complications PROCEDURE MEDICATIONS Versed 1 mg IV Fentanyl 50 mcg IV Versed 1 mg IV Versed 1 mg IV Oxygen: 2 L/min via nasal cannula Brilinta 180 mg PO @ 12/07/2022 12:17:49 Heparin given IA 12/07/2022 12:09:21 Heparin 5000 unit(s) IV 12/07/2022 12:25:29 Verapamil 2.5mg, Ntg 100mcgs, 3000 units of Heparin given IA 12/07/2022 12:09:21 SUMMARY OF HEMODYNAMIC DATA Time AIR REST ECG 11:13:49 Art 139/77 (100) 11:34:45 AO 118/84 (98) SA 12:11:13 LV 126/16, 19 12:15:50 LV 124/13, 18 12:15:56 LV 123/13, 19 12:16:34 LV 125/14, 22 12:16:40 LVp 128/12, 23 12:16:45 AOp 128/78 (99) 12:16:50 AIR REST 14:38:29 Signed By Lorenzo Caisllas MD On 12/09/2022 11:19:30 Lorenzo Casillas MD
--- NOTE | 2022-12-10 12:55 | CL.D_ITS ---
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 RECOMMENDATIONS Referred for immediate PCI DESCRIPTION OF PROCEDURE The patient arrived to the procedure lab. The risks and benefits of the procedure as well as a full description of our services here and current unavailability of surgical backup were fully explained to the patient and/or their significant other prior to the catheterization. The Timeout was completed, verifying the correct patient and procedure. The patient's procedural site was prepped and draped in the usual fashion. Local anesthetic was given subcutaneously to right radial region with Lidocaine 2%. Using a modified Seldinger technique, arterial access was obtained via the right radial artery, a 6Fr sheath was inserted. Right Coronary Artery selective angiography was then performed in multiple views using a 5 Fr. 4.0 Hensley catheter. Left Coronary Artery selective angiography was performed in multiple views using a 5 Fr. 4.0 Hensley catheter. Left Ventriculography was performed in ROSARIO projection using a 5 Fr. Pigtail catheter. LV to AO pullback pressures were then recorded.The arterial sheath was pulled and a TR Band was applied for hemostasis w/10ml air CORONARY ANGIOGRAPHY DOMINANCE: Right Dominant LEFT HEART ASSESSMENT Left Ventricular Ejection Fraction: by LV Gram 35 % Global Hypokinesis - Moderate Depressed Left Ventricular systolic function LEFT MAIN: Angiographically normal LEFT ANTERIOR DESCENDING ARTERY: Mild calcification, Mild luminal irregularities CIRCUMFLEX ARTERY: MID CIRC: 80 % Stenosis OM 1: Proximal - Mild luminal irregularities RIGHT CORONARY ARTERY: Proximal to mid disease noted of approximately 70 to 75% with mild distal disease noted. COMPLICATIONS No Complications PROCEDURE MEDICATIONS Versed 1 mg IV Fentanyl 50 mcg IV Versed 1 mg IV Versed 1 mg IV Oxygen: 2 L/min via nasal cannula Brilinta 180 mg PO @ 12/07/2022 12:17:49 Heparin given IA 12/07/2022 12:09:21 Heparin 5000 unit(s) IV 12/07/2022 12:25:29 Verapamil 2.5mg, Ntg 100mcgs, 3000 units of Heparin given IA 12/07/2022 12:09:21 SUMMARY OF HEMODYNAMIC DATA Time AIR REST ECG 11:13:49 Art 139/77 (100) 11:34:45 AO 118/84 (98) SA 12:11:13 LV 126/16, 19 12:15:50 LV 124/13, 18 12:15:56 LV 123/13, 19 12:16:34 LV 125/14, 22 12:16:40 LVp 128/12, 23 12:16:45 AOp 128/78 (99) 12:16:50 AIR REST 14:38:29 Signed By Jonny Fischer MD On 12/10/2022 12:55:19 Jonny Fischer MD
== END 2022-12-08 15:44 | disposition home or self-care (01) | DRG 246 ==
LOC: ED 12:08 → PCU 12:40
PROVIDERS: Admitting Provider Internal Medicine; Emergency Provider Emergency Medicine; PCP Family Medicine; Visit Provider Internal Medicine
DX: I11.0 Hypertensive heart disease with heart failure (principal); I50.31 Acute diastolic (congestive) heart failure; J81.0 Acute pulmonary edema; E11.42 Type 2 diabetes mellitus with diabetic polyneuropathy; Z79.4 Long term (current) use of insulin; E78.00 Pure hypercholesterolemia, unspecified; K21.9 Gastro-esophageal reflux disease without esophagitis; F41.9 Anxiety disorder, unspecified; R09.02 Hypoxemia; F32.A Depression, unspecified; E66.9 Obesity, unspecified; Z68.36 Body mass index [BMI] 36.0-36.9, adult; Z79.02 Long term (current) use of antithrombotics/antiplatelets; Z79.82 Long term (current) use of aspirin; Z79.84 Long term (current) use of oral hypoglycemic drugs; Z79.899 Other long term (current) drug therapy; Z87.891 Personal history of nicotine dependence; Z23 Encounter for immunization
CPT/HCPCS: 36415; 71045; 71275; 80048; 80053; 82962; 83880; 84484; 85025; 87428; 87635; 92928; 93005; 93306; 93458; 94640; 94668; 99152; 99153; 99252; 99284; C1874; J7030; J7040; Q9967; A4216; C1725; C1769; C1887; C1894; C9600; G0463; J1940; U0003; U0005